=== PATIENT | male | born 1930 | race Caucasian/White ===

== ENCOUNTER → 2019-01-05 | Outpatient (REF) ==
[~2019-01-05] MED LIST: ASPI81TA83 OR; AVOD0.5C OR; CIPR25SS OR; COLA100C2 OR; LIPI80TA OR; LISI2.5T OR; METROPROLOL PO; MULTLIQ7 PO; NITR0.4S SL; PLAV75TA2 OR; RAPAFLO PO
[2019-01-05 09:41] LABS: INR 2.31; PROTHROMBIN TIME 25.9 SECONDS (12.1-14.4)
== END ==
LOC: SKLAB3 06:59
PROVIDERS: ATTEND Internal Medicine
DX: Z47.89 Encounter for other orthopedic aftercare (principal); Z98.890 Other specified postprocedural states; Z79.899 Other long term (current) drug therapy

== ENCOUNTER → 2019-01-06 | Outpatient (REF) ==
[~2019-01-06] MED LIST changes: +AMIO200T PO; +ATOR80TA59 PO; +COLA100C5 PO; +FLOM0.4C39 PO; +LORA10TA3 PO; +MELA5TAB17 PO; +METO1TAB87 PO; +NITR4TASL SL; +PANT40TA3 PO; +PPD5VL ID; +SPIR-10 PO; +SYNT50TA PO; +TYLE325T5 PO; +TYLE500T78 PO; +VITMTA PO; +WARF4TAB52 PO
[2019-01-06 07:37] LABS: INR 2.75; PROTHROMBIN TIME 29.6 SECONDS (12.1-14.4)
== END ==
LOC: SKLAB3 07:00
PROVIDERS: ATTEND Internal Medicine
DX: S72.009A Fracture of unspecified part of neck of unspecified femur, initial encounter for closed fracture (principal); X58.XXXA Exposure to other specified factors, initial encounter; Y92.9 Unspecified place or not applicable; Y93.9 Activity, unspecified; Y99.9 Unspecified external cause status; Z79.01 Long term (current) use of anticoagulants

== ENCOUNTER → 2019-01-09 | Outpatient (REF) ==
[2019-01-09 07:49] LABS: HEMATOCRIT 26.2 % (42.0-52.0); HEMOGLOBIN 8.8 g/dl (13.5-17.5); MEAN CORPUSCULAR HEMOGLOBIN 31.4 pg (27.0-33.0); MEAN CORPUSCULAR HGB CONC 33.6 g/dl (32.0-36.5); MEAN CORPUSCULAR VOLUME 93.6 fl (80.0-96.0); PLATELET COUNT, AUTOMATED 333 10^3/uL (150-450); WHITE BLOOD COUNT 11.8 10^3/uL (4.0-10.0)
[2019-01-09 08:03] LABS: INR 3.51
[2019-01-09 08:20] LABS: BLOOD UREA NITROGEN 34 MG/DL (7-18); CALCIUM LEVEL 8.2 MG/DL (8.8-10.2); CARBON DIOXIDE LEVEL 23 MEQ/L (21-32); CHLORIDE LEVEL 102 MEQ/L (98-107); CREATININE FOR GFR 1.04 MG/DL (0.70-1.30); GLOMERULAR FILTRATION RATE > 60.0 (>35); GLUCOSE, FASTING 100 MG/DL (70-100); NT-PRO BNP 3326 PG/ML (<450); POTASSIUM SERUM 3.8 MEQ/L (3.5-5.1); SODIUM LEVEL 135 MEQ/L (136-145)
--- NOTE | 2019-01-09 14:21 | REP ---
Clinical: Shortness of breath. CHF . Comparison: 03/03/2011 . Findings: The mediastinum and cardiac silhouette are stable and within normal limits for portable technique. The lung noriega are clear without acute consolidation, effusion, or pneumothorax. Skeletal structures are intact. Impression: No acute cardiopulmonary process appreciated. Electronically Signed by Marck Villaseñor MD 01/09/2019 02:13 P
== END ==
LOC: SKLAB3 07:00
PROVIDERS: ATTEND Family Medicine
DX: S72.009A Fracture of unspecified part of neck of unspecified femur, initial encounter for closed fracture (principal); X58.XXXA Exposure to other specified factors, initial encounter; Y92.9 Unspecified place or not applicable; Y93.9 Activity, unspecified; Y99.9 Unspecified external cause status; Z79.01 Long term (current) use of anticoagulants

== ENCOUNTER 2019-01-10 03:56 | Emergency (ER) | payer MEDICARE, OTHER ==
[~2019-01-10] VITALS: Ht 185.4 cm; Wt 90.9 kg
[~2019-01-10 03:56] MED LIST changes: -AMIO200T PO; -ATOR80TA59 PO; -COLA100C5 PO; -FLOM0.4C39 PO; -LORA10TA3 PO; -MELA5TAB17 PO; -METO1TAB87 PO; -NITR4TASL SL; -PANT40TA3 PO; -PPD5VL ID; -SPIR-10 PO; -SYNT50TA PO; -TYLE325T5 PO; -TYLE500T78 PO; -VITMTA PO; -WARF4TAB52 PO
[2019-01-10 04:38] VITALS: BP 98/58
[2019-01-10] MEDS ORDERED: AMIO200T PO (04:45)
[2019-01-10] MEDS ORDERED: TYLE500T78 PO (04:45)
[2019-01-10] MEDS ORDERED: MELA5TAB17 PO (04:45)
[2019-01-10] MEDS ORDERED: COLA100C5 PO (04:45)
[2019-01-10] MEDS ORDERED: LORA10TA3 PO (04:45)
[2019-01-10] MEDS ORDERED: VITMTA PO (04:45)
[2019-01-10] MEDS ORDERED: PANT40TA3 PO (04:45)
[2019-01-10] MEDS ORDERED: SPIR-10 PO (04:45)
[2019-01-10] MEDS ORDERED: TYLE325T5 PO (04:45)
[2019-01-10] MEDS ORDERED: WARF4TAB52 PO (04:45)
[2019-01-10] MEDS ORDERED: METO1TAB87 PO (04:45)
[2019-01-10] MEDS ORDERED: FLOM0.4C39 PO (04:45)
[2019-01-10] MEDS ORDERED: ATOR80TA59 PO (04:45)
[2019-01-10] MEDS ORDERED: PPD5VL ID (04:45)
[2019-01-10] MEDS ORDERED: NITR4TASL SL (04:45)
[2019-01-10] MEDS ORDERED: SYNT50TA PO (04:45)
== END 2019-01-10 05:08 | disposition home or self-care (01) ==
LOC: M ED 03:56
DX: R33.9 Retention of urine, unspecified (principal); I10 Essential (primary) hypertension; I48.91 Unspecified atrial fibrillation; Z95.0 Presence of cardiac pacemaker; Z88.1 Allergy status to other antibiotic agents; Z79.899 Other long term (current) drug therapy; Z79.01 Long term (current) use of anticoagulants

== ENCOUNTER → 2019-01-12 | Outpatient (REF) ==
[~2019-01-12] MED LIST changes: +AMIO200T PO; +ATOR80TA59 PO; +COLA100C5 PO; +FLOM0.4C39 PO; +LORA10TA3 PO; +MELA5TAB17 PO; +METO1TAB87 PO; +NITR4TASL SL; +PANT40TA3 PO; +PPD5VL ID; +SPIR-10 PO; +SYNT50TA PO; +TYLE325T5 PO; +TYLE500T78 PO; +VITMTA PO; +WARF4TAB52 PO
[2019-01-12 08:20] LABS: HEMATOCRIT 28.5 % (42.0-52.0); HEMOGLOBIN 9.3 g/dl (13.5-17.5); MEAN CORPUSCULAR HEMOGLOBIN 31.2 pg (27.0-33.0); MEAN CORPUSCULAR HGB CONC 32.6 g/dl (32.0-36.5); MEAN CORPUSCULAR VOLUME 95.6 fl (80.0-96.0); PLATELET COUNT, AUTOMATED 431 10^3/uL (150-450); RED BLOOD COUNT 2.98 10^6/uL (4.30-6.10); WHITE BLOOD COUNT 12.1 10^3/uL (4.0-10.0)
[2019-01-12 08:34] LABS: INR 3.39; PROTHROMBIN TIME 35.1 SECONDS (12.1-14.4)
== END ==
LOC: SKLAB3 07:19
PROVIDERS: ATTEND Internal Medicine
DX: Z79.01 Long term (current) use of anticoagulants (principal); E03.9 Hypothyroidism, unspecified; D64.9 Anemia, unspecified

== ENCOUNTER → 2019-01-14 | Outpatient (REF) ==
[2019-01-14 08:46] LABS: INR 3.11; PROTHROMBIN TIME 32.7 SECONDS (12.1-14.4)
== END ==
LOC: SKLAB3 07:00
PROVIDERS: ATTEND Internal Medicine
DX: Z79.01 Long term (current) use of anticoagulants (principal)

== ENCOUNTER → 2019-01-16 | Outpatient (REF) ==
[2019-01-16 09:02] LABS: HEMATOCRIT 29.6 % (42.0-52.0); HEMOGLOBIN 9.4 g/dl (13.5-17.5); MEAN CORPUSCULAR HEMOGLOBIN 31.3 pg (27.0-33.0); MEAN CORPUSCULAR HGB CONC 31.8 g/dl (32.0-36.5); MEAN CORPUSCULAR VOLUME 98.7 fl (80.0-96.0); PLATELET COUNT, AUTOMATED 491 10^3/uL (150-450)
[2019-01-16 09:29] LABS: BLOOD UREA NITROGEN 27 MG/DL (7-18); CARBON DIOXIDE LEVEL 24 MEQ/L (21-32); CHLORIDE LEVEL 106 MEQ/L (98-107); CREATININE FOR GFR 0.93 MG/DL (0.70-1.30); GLOMERULAR FILTRATION RATE > 60.0 (>35); GLUCOSE, FASTING 83 MG/DL (70-100); POTASSIUM SERUM 4.1 MEQ/L (3.5-5.1); SODIUM LEVEL 139 MEQ/L (136-145)
== END ==
LOC: SKLAB3 07:00
PROVIDERS: ATTEND Internal Medicine
DX: D64.9 Anemia, unspecified (principal); I50.9 Heart failure, unspecified

== ENCOUNTER → 2019-01-19 | Outpatient (REF) ==
[2019-01-19 10:39] LABS: INR 1.93; PROTHROMBIN TIME 22.4 SECONDS (12.1-14.4)
== END ==
LOC: SKLAB3 07:00
PROVIDERS: ATTEND Internal Medicine
DX: I48.91 Unspecified atrial fibrillation (principal)

== ENCOUNTER → 2019-01-24 | Outpatient (REF) ==
[2019-01-24 07:59] LABS: HEMATOCRIT 29.3 % (42.0-52.0); HEMOGLOBIN 9.2 g/dl (13.5-17.5); MEAN CORPUSCULAR HEMOGLOBIN 30.4 pg (27.0-33.0); MEAN CORPUSCULAR HGB CONC 31.4 g/dl (32.0-36.5); MEAN CORPUSCULAR VOLUME 96.7 fl (80.0-96.0); PLATELET COUNT, AUTOMATED 310 10^3/uL (150-450); RED BLOOD COUNT 3.03 10^6/uL (4.30-6.10); WHITE BLOOD COUNT 8.4 10^3/uL (4.0-10.0)
[2019-01-24 08:09] LABS: INR 1.93; PROTHROMBIN TIME 22.4 SECONDS (12.1-14.4)
[2019-01-24 08:24] LABS: BLOOD UREA NITROGEN 22 MG/DL (7-18); CALCIUM LEVEL 7.6 MG/DL (8.8-10.2); CARBON DIOXIDE LEVEL 26 MEQ/L (21-32); CHLORIDE LEVEL 105 MEQ/L (98-107); CREATININE FOR GFR 1.05 MG/DL (0.70-1.30); GLOMERULAR FILTRATION RATE > 60.0 (>35); GLUCOSE, FASTING 88 MG/DL (70-100); POTASSIUM SERUM 4.2 MEQ/L (3.5-5.1); SODIUM LEVEL 139 MEQ/L (136-145)
== END ==
LOC: SKLAB3 07:00
PROVIDERS: ATTEND Internal Medicine
DX: I48.91 Unspecified atrial fibrillation (principal); D64.9 Anemia, unspecified; I50.9 Heart failure, unspecified

== ENCOUNTER → 2019-01-26 | Outpatient (REF) ==
[2019-01-26 08:43] LABS: HEMATOCRIT 31.9 % (42.0-52.0); MEAN CORPUSCULAR HEMOGLOBIN 30.7 pg (27.0-33.0); MEAN CORPUSCULAR HGB CONC 31.3 g/dl (32.0-36.5); MEAN CORPUSCULAR VOLUME 97.9 fl (80.0-96.0); PLATELET COUNT, AUTOMATED 313 10^3/uL (150-450); RED BLOOD COUNT 3.26 10^6/uL (4.30-6.10); WHITE BLOOD COUNT 7.8 10^3/uL (4.0-10.0)
[2019-01-26 08:59] LABS: INR 1.81; PROTHROMBIN TIME 21.3 SECONDS (12.1-14.4)
[2019-01-26 10:52] LABS: BLOOD UREA NITROGEN 25 MG/DL (7-18); CARBON DIOXIDE LEVEL 25 MEQ/L (21-32); CHLORIDE LEVEL 105 MEQ/L (98-107); CHOLESTEROL LEVEL 92 MG/DL (<200); CHOLESTEROL RISK RATIO 3.066 (<5); CREATININE FOR GFR 1.14 MG/DL (0.70-1.30); GLOMERULAR FILTRATION RATE > 60.0 (>35); GLUCOSE, FASTING 99 MG/DL (70-100); HDL CHOLESTEROL 30 MG/DL (>40); LDL CHOLESTEROL 46 MG/DL (<100); NON-HDL-C 62 MG/DL; POTASSIUM SERUM 4.2 MEQ/L (3.5-5.1); SODIUM LEVEL 141 MEQ/L (136-145); TRIGLYCERIDES LEVEL 80 MG/DL (<150)
== END ==
LOC: SKLAB3 07:00
PROVIDERS: ATTEND Internal Medicine
DX: I48.91 Unspecified atrial fibrillation (principal); D64.9 Anemia, unspecified; E78.5 Hyperlipidemia, unspecified; I50.9 Heart failure, unspecified

== ENCOUNTER → 2019-02-03 | Outpatient (REF) ==
[2019-02-03 14:26] LABS: INR 2.29; PROTHROMBIN TIME 25.7 SECONDS (12.1-14.4)
== END ==
LOC: SKLAB3 10:26
PROVIDERS: ATTEND Internal Medicine
DX: I48.91 Unspecified atrial fibrillation (principal)

== ENCOUNTER → 2019-02-13 | Outpatient (REF) ==
--- NOTE | 2019-02-13 16:24 | ECGEPIP ---
Stationary ECG Study [facility] Test Date: 2019-02-13 Pat Name: ELIJAH WHIPPLE Department: Room: - Gender: M [employer] Faculty Member: SCOTT : [id number] Requested By: Layo Monteiro Order Number: [id number] Reading MD: Tia Cruz Measurements Intervals [place] Rate: 72 P: IN: 0 QRS: -12 QRSD: 157 T: 124 QT: 473 QTc: 520 Interpretive Statements ATRIAL FLUTTER/TACHYCARDIA INTRAVENTRICULAR CONDUCTION DELAY ILBBB SEPTAL CO AGE UNDETERMINDED NO PRIOR ISOLATED ST ELEV IN V2 NO RECIPROCOL CHANGE DR MONTEIRO OFFICE WILL BE CALLED ALERTING TO INCOMING FAX Electronically Signed On 02-13-2019 16:23:44 EDT by Tia Cruz
== END ==
LOC: SKLAB3 06:53
PROVIDERS: ATTEND Internal Medicine
DX: I49.9 Cardiac arrhythmia, unspecified (principal)

== ENCOUNTER → 2019-03-02 | Outpatient (CLI) | payer MEDICARE, OTHER ==
[~2019-03-02] MED LIST changes: +ACET-683 PO; +DOXY-350 PO; +DOXY100C37 PO; +ENOX80IN3 SQ; +MIRA3350 PO
--- NOTE | 2019-03-02 10:59 | REP ---
Bilateral lower extremity arterial Doppler ultrasound: History: Stage III pressure ulcer left heel. Evaluate for bilateral arterial insufficiency. Findings: The ankle brachial indices are normal bilaterally, measured at 1.8 on the right and 1.4 on the left. There is mild plaquing visualized in the arterial system of each leg. No high-grade stenosis is identified. Monophasic waveforms are observed in the distal posterior tibial arteries bilaterally which may imply some calf disease. Right lower extremity arterial Doppler velocity chart: CF A 74 cm/S Profunda 79 Proximal SFA 84 Mid SFA 81 Distal SFA 73 Popliteal 66 Proximal AT A 43 Tibioperoneal trunk 71 Proximal [employer] ADVISOR 96 Distal [employer] BEAUTY ADVISOR 114 Distal AT A 67 Left lower extremity arterial Doppler velocity chart: CF A 99 cm/S Profunda 71 Proximal SFA 101 Mid SFA 102 Distal SFA 92 Popliteal 61 Proximal AT A 35 Tibioperoneal trunk 59 Proximal [employer] BEAUTY ADVISOR 91 Distal [employer] SALES BEAUTY ADVISOR 111 Distal AT A 62 Electronically Signed by Jordan Franklin MD 03/02/2019 10:50 A
== END ==
LOC: M RAD 09:06
PROVIDERS: ATTEND Surgery
DX: L89.623 Pressure ulcer of left heel, stage 3 (principal); R09.89 Other specified symptoms and signs involving the circulatory and respiratory systems

== ENCOUNTER → 2019-03-09 | Outpatient (CLI) | payer MEDICARE, OTHER ==
[~2019-03-09] VITALS: Ht 180.3 cm; Wt 85.9 kg
[~2019-03-09] MED LIST changes: -ACET-683 PO; -DOXY-350 PO; -DOXY100C37 PO; -ENOX80IN3 SQ; +ETOMIDATE INJ 20MG/10ML VIAL As Ordered ONE; +LIDOCAINE 2% 5ML JELLY UROJET As Ordered ONE; +LIDOCAINE 2% INJ 100 MG/5 ML SDV (FOR ANES.) As Ordered ONE; +LR 1,000 ML IV ONE; +LevoFLOXacin IV 500 MG in APPROPRIATE DILUENT 1 EA IV ONE; +MIDAZOLAM INJ 2 MG/2 ML VIAL (J2250) As Ordered ONE; -MIRA3350 PO; +ONDANSETRON 4MG/2ML VIAL (J2405) As Ordered ONE; +PROPOFOL 200 MG/20 ML VIAL As Ordered ONE; +ROCURONIUM BROMIDE 50 MG/5 ML VIAL As Ordered ONE; +dexameTHASONE 4 MG/ML 1ML VIAL (J1100) As Ordered ONE; +fentaNYL 100 MCG/2 ML INJECTION (J3010) As Ordered ONE
[2019-03-09 11:51] VITALS: BP 115/75
[2019-03-09 15:26] LABS: INR 2.04; PROTHROMBIN TIME 23.4 SECONDS (12.1-14.4)
== END ==
LOC: M SDC 09:41 → EDSTATUS 13:00
PROVIDERS: ATTEND Urology
DX: N32.0 Bladder-neck obstruction (principal); Z53.09 Procedure and treatment not carried out because of other contraindication; Z79.01 Long term (current) use of anticoagulants
CPT/HCPCS: 85610; J1956; J2250; J3010

== ENCOUNTER 2019-03-17 10:32 | Day surgery (SDC) | payer MEDICARE, OTHER ==
[~2019-03-17] VITALS: Ht 180.3 cm; Wt 89.8 kg
[~2019-03-17 10:32] MED LIST changes: -ETOMIDATE INJ 20MG/10ML VIAL As Ordered ONE; -LIDOCAINE 2% 5ML JELLY UROJET As Ordered ONE; -LR 1,000 ML IV ONE; +LR 1,000 ML IV SCH; -MIDAZOLAM INJ 2 MG/2 ML VIAL (J2250) As Ordered ONE; -ROCURONIUM BROMIDE 50 MG/5 ML VIAL As Ordered ONE; -fentaNYL 100 MCG/2 ML INJECTION (J3010) As Ordered ONE
[2019-03-17 11:12] LABS: BASO % 0.4 % (0.0-1.0); EOS # 0.1 10^3/uL (0.0-0.50); EOS % 0.5 % (0.0-3.0); HEMATOCRIT 38.4 % (42.0-52.0); HEMOGLOBIN 12.2 g/dl (13.5-17.5); LYMPH # 0.9 10^3/uL (1.5-4.5); LYMPH % 8.3 % (24.0-44.0); MEAN CORPUSCULAR HGB CONC 31.8 g/dl (32.0-36.5); MEAN CORPUSCULAR VOLUME 88.1 fl (80.0-96.0); MONO # 0.9 10^3/uL (0.0-0.8); MONO % 8.2 % (0.0-5.0); NEUTROPHILS # 8.8 10^3/uL (1.8-7.7); NEUTROPHILS % 81.9 % (36.0-66.0); PLATELET COUNT, AUTOMATED 261 10^3/uL (150-450); RED BLOOD COUNT 4.36 10^6/uL (4.30-6.10); WHITE BLOOD COUNT 10.8 10^3/uL (4.0-10.0)
[2019-03-17 11:33] LABS: CALCIUM LEVEL 8.8 MG/DL (8.8-10.2); CREATININE FOR GFR 1.44 MG/DL (0.70-1.30); GLOMERULAR FILTRATION RATE 49.5 (>35); POTASSIUM SERUM 4.2 MEQ/L (3.5-5.1)
[2019-03-17] MEDS ORDERED: fentaNYL 100 MCG/2 ML INJECTION (J3010) As Ordered ONE (13:38)
[2019-03-17] MEDS ORDERED: MIDAZOLAM INJ 2 MG/2 ML VIAL (J2250) As Ordered ONE (13:38)
[2019-03-17] MEDS ORDERED: KETAMINE HCL 200 MG/20 ML VIAL As Ordered ONE (14:03)
[2019-03-17] MEDS ORDERED: LIDOCAINE 2% 5ML JELLY UROJET As Ordered ONE (14:09)
[2019-03-17] MEDS ORDERED: ONDANSETRON 4MG/2ML VIAL (J2405) IV PRN (15:30)
[2019-03-17] MEDS ORDERED: fentaNYL 100 MCG/2 ML INJECTION (J3010) IV PRN (15:30)
[2019-03-17] MEDS ORDERED: LR 1,000 ML IV SCH (15:30)
[2019-03-17] MEDS ORDERED: NORCO, ANEXSIA 5/325MG TABLET (HYDROcodone/ACETAMINOPHEN) PO PRN (15:30)
[2019-03-17] MEDS ORDERED: ACETAMINOPHEN TAB 650MG DOSE (2X325MG) PO PRN (15:45)
[2019-03-17 16:40] VITALS: BP 104/59
--- NOTE | 2019-03-17 22:00 | RO ---
DATE OF PROCEDURE: 03/17/2019 PREOPERATIVE DIAGNOSIS: Bladder neck contracture. POSTOPERATIVE DIAGNOSIS: Bladder neck contracture. OPERATIVE PROCEDURE: Cystoscopy, transurethral incision of bladder neck. SURGEON: Juan Rosales MD CHIEF CONTROLLER STATION: None. ANESTHESIA: Monitored anesthesia care (MAC). 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 He was brought to the operating room today for the above listed procedure. DESCRIPTION OF OPERATION: The patient was brought to the operating room and MAC anesthesia was administered. Prophylactic antibiotics were infused. He was then placed in the dorsal lithotomy position and prepped and draped in the usual sterile fashion. At this point, a resectoscope was inserted through the urethral meatus and advanced towards the bladder. Once at the level of the bladder neck of note he had a narrow bladder neck contracture. At this point, we utilized a Andrea's knife to make incisions at 5-o'clock, 7-o'clock and 12-o'clock. I did this until the bladder neck was wide open. Any areas of bleeding were cauterized with electrocautery. Once satisfied with hemostasis, the resectoscope was removed and an #18-[place]ov[place] Butts catheter was inserted into the bladder. The balloon was filled with 10 mL of sterile water and then connected to gravity drainage. This marked the conclusion of the procedure. The patient was then taken out of the dorsal lithotomy position, awakened from anesthesia and transported to the recovery room in stable condition. ESTIMATED BLOOD LOSS: 5 mL. COMPLICATIONS: None. SPECIMENS: None. PLAN: The patient will followup in the clinic in approximately 1 to 2 weeks for catheter removal and voiding trial. LUCÍA
== END 2019-03-17 17:01 | disposition home or self-care (01) ==
LOC: M SDC 10:32
PROVIDERS: ATTEND Urology
DX: N32.0 Bladder-neck obstruction (principal); I48.91 Unspecified atrial fibrillation; I25.10 Atherosclerotic heart disease of native coronary artery without angina pectoris; I10 Essential (primary) hypertension; E78.5 Hyperlipidemia, unspecified; E03.9 Hypothyroidism, unspecified; K21.9 Gastro-esophageal reflux disease without esophagitis; Z79.01 Long term (current) use of anticoagulants; N40.0 Benign prostatic hyperplasia without lower urinary tract symptoms; Z95.0 Presence of cardiac pacemaker; Z95.810 Presence of automatic (implantable) cardiac defibrillator; Z86.73 Personal history of transient ischemic attack (TIA), and cerebral infarction without residual deficits; Z88.1 Allergy status to other antibiotic agents
CPT/HCPCS: 36415; 52277; 80048; 85025; J1100; J1956; J2250; J2405; J3010

== ENCOUNTER 2019-03-20 13:40 | Emergency (ER) | payer MEDICARE, OTHER ==
[~2019-03-20] VITALS: Ht 180.3 cm; Wt 85.9 kg
[~2019-03-20 13:40] MED LIST changes: -LIDOCAINE 2% INJ 100 MG/5 ML SDV (FOR ANES.) As Ordered ONE; -LR 1,000 ML IV SCH; -LevoFLOXacin IV 500 MG in APPROPRIATE DILUENT 1 EA IV ONE; -ONDANSETRON 4MG/2ML VIAL (J2405) As Ordered ONE; -PROPOFOL 200 MG/20 ML VIAL As Ordered ONE; -dexameTHASONE 4 MG/ML 1ML VIAL (J1100) As Ordered ONE
[2019-03-20 16:19] VITALS: BP 103/65
[2019-03-21] MEDS ORDERED: SANTYL OINT 30GM TOP ONE (09:00)
== END 2019-03-20 17:35 | disposition home or self-care (01) ==
LOC: M ED 13:40
DX: L89.619 Pressure ulcer of right heel, unspecified stage (principal); L89.629 Pressure ulcer of left heel, unspecified stage; I11.9 Hypertensive heart disease without heart failure; I25.10 Atherosclerotic heart disease of native coronary artery without angina pectoris; I25.2 Old myocardial infarction; N40.0 Benign prostatic hyperplasia without lower urinary tract symptoms; Z95.0 Presence of cardiac pacemaker; Z95.5 Presence of coronary angioplasty implant and graft; Z88.1 Allergy status to other antibiotic agents; Z79.899 Other long term (current) drug therapy

== ENCOUNTER 2019-03-26 15:11 | Emergency (ER) | payer MEDICARE, OTHER ==
[~2019-03-26] VITALS: Ht 182.9 cm; Wt 85.9 kg
[2019-03-26] MEDS ORDERED: NS 500 ML IV ONE (16:00)
[2019-03-26 16:28] LABS: BASO % 0.4 % (0.0-1.0); EOS # 0.1 10^3/uL (0.0-0.50); EOS % 0.5 % (0.0-3.0); HEMATOCRIT 41.6 % (42.0-52.0); LYMPH # 1.5 10^3/uL (1.5-4.5); LYMPH % 13.6 % (24.0-44.0); MEAN CORPUSCULAR HEMOGLOBIN 28.1 pg (27.0-33.0); MEAN CORPUSCULAR HGB CONC 31.3 g/dl (32.0-36.5); MEAN CORPUSCULAR VOLUME 89.8 fl (80.0-96.0); MONO # 0.9 10^3/uL (0.0-0.8); NEUTROPHILS # 8.4 10^3/uL (1.8-7.7); NEUTROPHILS % 76.9 % (36.0-66.0); PLATELET COUNT, AUTOMATED 284 10^3/uL (150-450); RED BLOOD COUNT 4.63 10^6/uL (4.30-6.10)
[2019-03-26 16:57] LABS: ALBUMIN 2.9 GM/DL (3.2-5.2); BILIRUBIN,DIRECT 0.2 MG/DL (0.0-0.2); BILIRUBIN,TOTAL 0.4 MG/DL (0.2-1.0); C REACTIVE PROTEIN QUANTITATIV 3.76 MG/DL (0.00-0.30); CALCIUM LEVEL 8.7 MG/DL (8.8-10.2); CREATININE FOR GFR 1.61 MG/DL (0.70-1.30); GLOMERULAR FILTRATION RATE 43.5 (>35); POTASSIUM SERUM 4.7 MEQ/L (3.5-5.1); TOTAL PROTEIN 6.9 GM/DL (6.4-8.2)
--- NOTE | 2019-03-26 17:01 | REP ---
Duplex extremity venous ultrasound: Left lower extremity. History: Left leg redness and pain. Swelling. Question DVT. Findings: The deep veins are anechoic and fully compressible from the groin to the popliteal fossa in the left lower extremity. Color flow imaging is homogeneous. Spectral Doppler interrogation demonstrates intact respiratory variation in flow and normal manual augmentation of flow. There is no evidence of deep vein thrombosis. Impression: Negative left lower extremity duplex venous ultrasound. No evidence of deep vein thrombosis. Electronically Signed by Jordan Franklin MD 03/26/2019 04:53 P
[2019-03-26 17:45] VITALS: BP 107/53
[2019-03-26] MEDS ORDERED: DOXYCYCLINE HYCLATE 100 MG TAB PO ONE (18:00)
[2019-03-26] MEDS ORDERED: DOXY-350 PO (18:02)
[2019-03-26] MEDS ORDERED: ENOX80IN3 SQ (18:17)
[2019-03-26] MEDS ORDERED: DOXY100C37 PO (18:18)
== END 2019-03-26 18:32 | disposition home or self-care (01) ==
LOC: M ED 15:11
DX: L03.116 Cellulitis of left lower limb (principal); L97.929 Non-pressure chronic ulcer of unspecified part of left lower leg with unspecified severity; Z72.0 Tobacco use; Z95.5 Presence of coronary angioplasty implant and graft; Z95.0 Presence of cardiac pacemaker; N40.1 Benign prostatic hyperplasia with lower urinary tract symptoms; E03.9 Hypothyroidism, unspecified; Z79.899 Other long term (current) drug therapy; Z88.8 Allergy status to other drugs, medicaments and biological substances; Z91.040 Latex allergy status

== ENCOUNTER → 2019-03-27 | Outpatient (CLI) | payer MEDICARE, OTHER ==
[~2019-03-27] MED LIST changes: +DOXY-350 PO; +DOXY100C37 PO; +ENOX80IN3 SQ; +HEPARIN 1,000 UNITS/ML 10ML VIAL (FOR RADIOLOGY& DIALYSIS ONLY) As Ordered ONE; +ISOVUE-300 61% 100ML VIAL (Q9967) As Ordered ONE; +LIDOCAINE 2% MDV 20 ML VIAL As Ordered ONE; +MIDAZOLAM INJ 2 MG/2 ML VIAL (J2250) As Ordered ONE; +diphenhydrAMINE INJ 50MG/ML VIAL (J1200) As Ordered ONE; +fentaNYL 100 MCG/2 ML INJECTION (J3010) As Ordered ONE
[2019-03-27 12:04] LABS: INR 1.04; PROTHROMBIN TIME 13.8 SECONDS (12.1-14.4)
--- NOTE | 2019-03-27 15:34 | ROOPDOC ---
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 Ultrasound-guided access right common femoral artery 2. Left lower extremity arteriogram with selection of the posterior tibial artery 3. Angioplasty of the left tibial peroneal trunk and posterior tibial artery with a 3 x 220 Raghu balloon 4. Completion arteriograms 5. Minx closure right common femoral artery SURGEON: Naheed Ordoñez MD ANESTHESIA: Local anesthesia, 8 mL of lidocaine. Moderate intravenous conscious sedation was supervised by Dr. Ordoñez and the patient tolerated this without complication. The patient was independently monitored by a registered nurse assigned to the Department of radiology using automated blood pressure, EKG, and pulse oximetry. The detail Ramírez record is permanently stored in the hospital information system. The following is a conscious sedation record: Start time 13:27, end time 14:30, Versed 1 mg IV, fentanyl 75 g IV, heparin 5000 units IV. IV contrast: 24 mL Isovue INDICATION FOR PROCEDURE: Mr. Kwok is a very pleasant 88-year-old gentleman with significant tibial atherosclerotic disease, with suspected occlusion of his left posterior tibial artery after examining recent ultrasound imaging. He has significant wounds of the left foot, heel, ankle, and calf. These have been nonhealing and somewhat worsening over the past few weeks. We discussed with the patient due to his advanced age, stage III progressive chronic renal insufficiency, congestive heart failure, and other medical comorbidities that he is high risk for any procedure. The patient's family was present for this discussion. Both the patient and his family feel at this point limb salvage is of the utmost importance and they understand that there are risks. In order to minimize these risks, we will provide gentle hydration to try to protect the kidneys and at the same time not overload the heart. We will use as little IV contrast as possible, with the goal of less than 50mL. The patient also has atherosclerosis and wounds on the right lower extremity, but per his family and the patient these are getting better. If possible, we like to hold off at least a few weeks before working on the right leg if his wounds do not heal in the interim. However, if his wound heal, I do not feel intervention is warranted as at that point the risks would outweigh the benefits. After a lengthy discussion, informed consent was obtained. INTERPRETATION: 1. The left lower extremity femoral-popliteal flow is widely patent. 2. There is mild atherosclerotic disease noted in the distal popliteal artery that is not flow restrictive, a little bit of plaque noted in the tibioperoneal trunk, and complete occlusion 5 mm from the origin of the posterior tibial artery. The peroneal artery and anterior tibial artery has some atherosclerosis but it does not appear flow limiting. The posterior tibial artery does not reconstitute distally. 3. After angioplasty of the left lower extremity tibioperoneal trunk and posterior tibial artery, extending all the way down to the plantar arteries, the patient had a widely patent flow through all tibial vessels to the foot. There was a biphasic posterior tibial signal at the ankle with Doppler. No extravasation, dissection, spasm, or embolization were noted after angioplasty. PROCEDURE: The patient was brought to the angiographic suite in stable condition and placed supine on the fluoroscopic table. His bilateral groins were prepped and draped in a sterile fashion. A timeout was performed. Sedation was administered without complication. Local anesthesia was administered to the skin and subcutaneous tissue over the right groin. Microneedle was used to access the right common femoral artery under ultrasound guidance. A wire was passed through this access and a micro-sheath was placed using a Seldinger technique. 1000 units of heparin was given and allowed to circulate. Through this sheath, we placed a long stiff Glidewire into the distal aorta under fluoroscopic guidance. We then advanced an angle catheter and went up and over the bifurcation into the left femoral system. Under fluoroscopic guidance, we navigated into the superficial femoral artery and arteriogram showed this to be widely patent. We then navigated down to the popliteal artery which was also widely patent with minimal plaque noted. We then placed her catheter in the popliteal artery and a selective view of the lower extremities revealed patent peroneal and anterior tibial arteries with runoff to the foot, but an occluded posterior tibial artery approximately 5 mm from its or we then utilized her Glidewire to access the posterior tibial artery and were able with some manipulation to cross through the chronic total occlusion. This took a bit of time, but once are catheter was in the distal posterior tibial artery, a select view here confirmed we were in the true lumen. We then advanced a V018 wire through the catheter into the distal posterior tibial artery and then into the plantar artery. Over the wire, we angioplasties the entire length of the tibioperoneal trunk, posterior tibial artery, and proximal plantar arteries with a 3 x 220 Raghu balloon. Several inflations were done with an initial inflation of 10 derik and then decreasing to 2 derik over the next 3 minutes. Multiple three-minute inflations were done to try to provide longer term angioplasty results and prevent spasm. Completion arteriogram showed widely patent flow through the tibioperoneal trunk, all 3 tibial vessels proximally and distally, and flow through the posterior tibial continued into the plantar vessels into the foot. This concluded our procedure. We exchanged our wire back for the 035 stiff Glidewire and exchanged her sheath over this wire for the short 6 [place]ian sheath. We then deployed a minx closure device in the right common femoral artery access site with good hemostasis. Pr essure was held for 5 minutes postprocedure and sterile dressings were applied. The patient was taken to recovery in stable condition and monitored for 4 hours on flat bed rest. There were no complications and he tolerated the procedure well. Very little contrast was used. We provided gentle hydration before during and after the procedure to minimize renal toxicity in this patient with tenuous renal function. ESTIMATED BLOOD LOSS: Approximately 5 mL. COMPLICATIONS: None. PLAN: We will see the patient back in clinic next week. We will check his groin access site in his foot perfusion at that time. We will schedule him for his ri ght lower extremity in 2-3 weeks, to get his kidneys a break between contrast ministrations. If his right foot heals in the interim, we will cancel the procedure (because at that point the risks would outweigh the benefits.) Hopefully the perfusion we provided today will help with wound healing in the left lower extremity. I suspect part of the lack of healing is due to ongoing pressure over the areas of wounds, but it certainly can hurt to have improved blood flow. The patient should resume his Lovenox twice a day and if it is okay with his primary care should also resume his Coumadin. NAHEED ORDOÑEZ MD March 27, 2019 15:20
== END | disposition home or self-care (01) ==
LOC: M IRPRO 10:16
PROVIDERS: ATTEND Surgery Vascular Surgery
DX: I70.245 Atherosclerosis of native arteries of left leg with ulceration of other part of foot (principal); I70.242 Atherosclerosis of native arteries of left leg with ulceration of calf; I70.244 Atherosclerosis of native arteries of left leg with ulceration of heel and midfoot; L97.529 Non-pressure chronic ulcer of other part of left foot with unspecified severity; L97.229 Non-pressure chronic ulcer of left calf with unspecified severity; L97.429 Non-pressure chronic ulcer of left heel and midfoot with unspecified severity
CPT/HCPCS: 37228; 85610; 99152; 99153; C1725; C1760; C1769; C1887; C1894; J2250; J3010; Q9967

== ENCOUNTER → 2019-04-21 | Outpatient (CLI) | payer MEDICARE, OTHER ==
[~2019-04-21] MED LIST changes: +BUPIVACAINE HCL 0.5% 10 ML VIAL As Ordered ONE; -ISOVUE-300 61% 100ML VIAL (Q9967) As Ordered ONE; +ISOVUE-300 61% 50ML VIAL (Q9967) As Ordered ONE
[2019-04-21 10:14] LABS: HEMATOCRIT 41.9 % (42.0-52.0); HEMOGLOBIN 13.2 g/dl (13.5-17.5); MEAN CORPUSCULAR HEMOGLOBIN 28.3 pg (27.0-33.0); MEAN CORPUSCULAR HGB CONC 31.5 g/dl (32.0-36.5); MEAN CORPUSCULAR VOLUME 89.7 fl (80.0-96.0); PLATELET COUNT, AUTOMATED 209 10^3/uL (150-450); RED BLOOD COUNT 4.67 10^6/uL (4.30-6.10); WHITE BLOOD COUNT 7.9 10^3/uL (4.0-10.0)
[2019-04-21 10:32] LABS: BLOOD UREA NITROGEN 19 MG/DL (7-18); CALCIUM LEVEL 9.1 MG/DL (8.8-10.2); CARBON DIOXIDE LEVEL 26 MEQ/L (21-32); CHLORIDE LEVEL 105 MEQ/L (98-107); CREATININE FOR GFR 1.06 MG/DL (0.70-1.30); GLOMERULAR FILTRATION RATE > 60.0 (>35); GLUCOSE, FASTING 89 MG/DL (70-100); SODIUM LEVEL 139 MEQ/L (136-145)
--- NOTE | 2019-04-21 15:48 | ROOPDOC ---
[facility] Report Of Operation Report of Operation DATE OF PROCEDURE: 04/21/19 PREPROCEDURE DIAGNOSES: Atherosclerosis of the [place] arteries of the right lower extremity with nonhealing ulcer of the right heel and foot. POSTPROCEDURE DIAGNOSES: Same. PROCEDURE: 1. Ultrasound-guided access left common femoral artery 2. Right lower extremity arteriogram 3. Tibial arteriograms from popliteal artery selection 4. Angioplasty of the right anterior tibial artery with a 3 x 220 Raghu balloon 5. Angioplasty of the right posterior tibial artery with a 3 x 220 Raghu balloon 6. Completion arteriograms 7. Minx closure left common femoral artery SURGEON: Naheed Ordoñez MD ANESTHESIA: Local anesthesia, and 5 mL 1% lidocaine. Moderate intravenous conscious sedation was supervised by Dr. Ordoñez. The patient was independently monitored by a registered nurse assigned to the Department of radiology using automated blood pressure, EKG and pulse oximetry. The detailed conscious record is permanently stored in the hospital information system. The following is a conscious sedation record: Start time 11:31, end time 12:40, Versed 0.5 mg IV, fentanyl 25 g IV, heparin 3000 units IV. IV CONTRAST: 33 mL total INDICATION FOR PROCEDURE: Mr. Kwok is a very pleasant 88-year-old gentleman with stage III renal insufficiency and CHF who has been struggling to manage ruma ateral feet and heel wounds. He has mild tibial disease in the bilateral lower extremities, and we were able to open up and angioplasty is posterior tibial artery in the left lower extremity a few weeks ago. He had as much melita procedural hydration as we felt he could tolerate with his heart failure, and we waited a few weeks in between procedures to minimize risk of contrast nephr opathy and also see if the wounds on his right lower extremity would heal without intervention. His creatinine is down to 1.06 which is excellent, but he still has significant way to go for healing on the right foot. Therefore we again discussed risks benefits and alternatives to arteriogram with potential intervention to see if we can open up more flow to the foot assist with wound healing. We will again try to use is minimal IV contrast as possible, with melita- procedure hydration. Informed consent was obtained. FINDINGS: 1. The right iliofemoral system and popliteal artery are widely patent. There is plaque throughout the tibial system, with the worst areas of stenosis and near occlusion in the proximal third of the anterior tibial artery. There are several areas of mild stenosis from this plaque in the posterior tibial artery in the proximal third, but distal to this it appears widely patent and is the best in- line runoff to the foot. 2. Following angioplasty of the anterior tibial and posterior tibial arteries, there is less than 10% residual stenosis in either vessel in the areas of angioplasty with 3 vessel runoff to the foot. No embolization, dissection, or extravasation is noted. PROCEDURE NOTE: The patient was brought to the angiographic suite in stable condition and placed supine on the fluoroscopic table. His bilateral groins were prepped and draped in a sterile fashion. Sedation was administered without complication. A timeout was performed. Local anesthesia was ministered to the skin and subcutaneous tissue in the left groin over the common femoral vessel. A microneedle was used to access the common femoral artery under ultrasound guidance. A wire was passed through this access of micro-sheath was placed over the wire using the Seldinger technique. A Glidewire was passed under fluoroscopy through this access into the distal aorta and the sheath was then exchanged for 6 Spanish sheath over the wire using a Seldinger technique. The sheath was then flushed with saline. An Omni flushed catheter was used to go up and over the bifurcation with a Glidewire and access the distal iliac system. Right lower extremity arteriogram was performed and we found widely patent iliofemoral flow, popliteal flow, and mild plaque and stenoses throughout the anterior tibial and posterior tibial system. We then navigated the wire into the distal superficial femoral artery and exchange the sheath for a 90 cm 6 Spanish sheath and flushed the sheath with saline. A [place] cath was placed over the wire and we were able to navigator wire into the anterior tibial artery, followed by the catheter. We then exchanged R wire for a V18 wire, which we navigated to the distal anterior tibial artery into the dorsal pedis artery. And over this wire we placed a 3 x 220 Raghu balloon. A three-minute angioplasty at low atmospheres was performed both distally and proximally within the vessel. Following this, there was widely patent inflow through the anterior tibial artery in the areas of near occlusion had less than 10% residual stenosis. We then utilized a glide cath to navigate the wire into the posterior tibial artery distally. We then angioplasty the proximal third of the posterior tibial artery with a 3 x 220 Raghu balloon, also at low atmospheres for three-minute inflation. Following this, completion arteriogram showed widely patent inflow through the posterior tibial artery with no flow- limiting plaque stenosis present. There was good flow all the way to the distal foot on completion arteriograms with no evidence of embolization dissection or extravasation. This concluded our procedure. We exchanged the 90 cm 6 Spanish sheath for short 6 Spanish sheath and a minx closure device was deployed under fluoroscopic guidance with good hemostasis. Pressure was held for 10 minutes. The patient tolerated this well and was transferred back to [facility] [address] in stable condition. He was monitored for 4 hours postprocedure for bleeding and then discharged home in stable condition. ESTIMATED BLOOD LOSS: Approximately 5 mL. COMPLICATIONS: None. PLAN: Our plan is for the patient to continue with his excellent wound care with Dr. Barajas. He should continue offloading his feet and heels to prevent new pressure necrosis on his wounds. He should eat plenty of protein to help with wound healing. Patient continued to take his Coumadin as prescribed by his primary care doctor. We will see the patient back in a week to check his left groin access site and make sure he is doing okay. NAHEED ORDOÑEZ MD Apr 21, 2019 15:48
== END | disposition home or self-care (01) ==
LOC: M IRPRO 09:08
PROVIDERS: ATTEND Surgery Vascular Surgery
DX: I70.234 Atherosclerosis of native arteries of right leg with ulceration of heel and midfoot (principal); I70.235 Atherosclerosis of native arteries of right leg with ulceration of other part of foot; L97.419 Non-pressure chronic ulcer of right heel and midfoot with unspecified severity; I50.9 Heart failure, unspecified; N18.3 Chronic kidney disease, stage 3 (moderate)
CPT/HCPCS: 37228; 37232; 75710; 80048; 85027; 99152; 99153; C1725; C1760; C1769; C1887; C1894; J2250; J3010; Q9967

== ENCOUNTER 2019-05-11 17:03 | Inpatient (IN) | payer MEDICARE, OTHER ==
[~2019-05-11] VITALS: Ht 182.9 cm; Wt 86.7 kg
[~2019-05-11 17:03] MED LIST changes: -BUPIVACAINE HCL 0.5% 10 ML VIAL As Ordered ONE; -HEPARIN 1,000 UNITS/ML 10ML VIAL (FOR RADIOLOGY& DIALYSIS ONLY) As Ordered ONE; -ISOVUE-300 61% 50ML VIAL (Q9967) As Ordered ONE; -LIDOCAINE 2% MDV 20 ML VIAL As Ordered ONE; -MIDAZOLAM INJ 2 MG/2 ML VIAL (J2250) As Ordered ONE; -diphenhydrAMINE INJ 50MG/ML VIAL (J1200) As Ordered ONE; -fentaNYL 100 MCG/2 ML INJECTION (J3010) As Ordered ONE
[2019-05-11] MEDS: NS 1,000 ML IV SCH (17:49)
[2019-05-11 17:57] LABS: BASO # 0.1 10^3/uL (0.0-0.2); BASO % 0.5 % (0.0-1.0); EOS # 0.2 10^3/uL (0.0-0.50); EOS % 1.6 % (0.0-3.0); HEMATOCRIT 38.3 % (42.0-52.0); HEMOGLOBIN 12.4 g/dl (13.5-17.5); LYMPH # 1.6 10^3/uL (1.5-4.5); LYMPH % 14.8 % (24.0-44.0); MEAN CORPUSCULAR HEMOGLOBIN 28.8 pg (27.0-33.0); MEAN CORPUSCULAR HGB CONC 32.4 g/dl (32.0-36.5); MEAN CORPUSCULAR VOLUME 89.1 fl (80.0-96.0); MONO % 9.4 % (0.0-5.0); NEUTROPHILS # 8.1 10^3/uL (1.8-7.7); NEUTROPHILS % 73.2 % (36.0-66.0); PLATELET COUNT, AUTOMATED 292 10^3/uL (150-450); WHITE BLOOD COUNT 11.1 10^3/uL (4.0-10.0)
[2019-05-11] MEDS ORDERED: ACETAMINOPHEN 325 MG TAB PO ONE (18:00)
[2019-05-11 18:09] LABS: INR 1.75; PROTHROMBIN TIME 20.2 SECONDS (11.8-14.0)
[2019-05-11] MEDS ORDERED: MIRA3350 PO (18:09)
[2019-05-11] MEDS ORDERED: ACET-683 PO (18:09)
[2019-05-11] MEDS ORDERED: WARF4TAB52 PO (18:09)
[2019-05-11 18:25] LABS: ERYTHROCYTE SEDIMENTATION RATE 80 mm/hr (0-30)
[2019-05-11 18:30] LABS: ALBUMIN 2.7 GM/DL (3.2-5.2); BILIRUBIN,DIRECT 0.1 MG/DL (0.0-0.2); BILIRUBIN,TOTAL 0.5 MG/DL (0.2-1.0); C REACTIVE PROTEIN QUANTITATIV 15.2 MG/DL (0.00-0.30); CALCIUM LEVEL 8.4 MG/DL (8.8-10.2); CREATININE FOR GFR 1.31 MG/DL (0.70-1.30); GLOMERULAR FILTRATION RATE 55.2 (>35); POTASSIUM SERUM 4.5 MEQ/L (3.5-5.1); TOTAL PROTEIN 6.5 GM/DL (6.4-8.2)
--- NOTE | 2019-05-11 18:30 | HPEPDOC ---
General Date of Admission 05/11/2019 Date of Service: May 11, 2019 Attending Physician: TIARA BUSH MD Chief Complaint The patient is a 88-year-old male admitted with a reason for visit of Raheel moreno. History of Present Illness Patient is an 88-year-old male, presenting to the emergency room after being referred by food safety field specialist on account of nonhealing left lower extremity gangrenous ulcer. Patient has a medical history significant for peripheral arterial disease with recent angioplasty to bilateral lower extremities. Today, he went to see the food safety field specialist and had extensive debridement of that left foot and was sent to the emergency room for antibiotic therapy, wound offloading, and wound cultures. History was provided by patient's family at bedside. This year in December, patient had a hip fracture for which he was hospitalized. In the rehabilitation facility he developed heel ulcers to bilateral lower extremities. This was treated with improvement. About a month ago vascular surgeon completed angioplasty of right lower extremity with improvement of blood flow and healing. There was also angioplasty of the left lower extremity, however, after multiple debridement therapy wound has remained nonhealing. Usually patient has wound evaluation and treatment weekly. In the emergency room, laboratory data showed elevated white blood count 11.1. P atient also reported increased pain rating of 5 out of 6 to left lower extremity. He, however, denied any chills, chest pain, shortness of breath. Home Medications Scheduled Amiodarone HCl (Amiodarone HCl) 200 Mg Tab, 200 MG PO 5XW, (Reported) mon, tues, wed, th, fri Atorvastatin Calcium (Atorvastatin Calcium) 80 Mg Tab, 80 MG PO QHS, (Reported) Docusate Sodium (Colace) 100 Mg Cap, 100 MG PO BID, (Reported) Levothyroxine Sodium (Synthroid) 50 Mcg Tab, 50 MCG PO DAILY, (Reported) Loratadine (Loratadine) 10 Mg Tab, 10 MG PO DAILY, (Reported) Metoprolol Tartrate (Metoprolol Tartrate) 25 Mg Tab, 12.5 MG PO BID, (Reported) Multivitamins (Thera M Plus Tablet) 1 Tab Tab, 1 TAB PO DAILY, (Reported) Pantoprazole Sodium (Pantoprazole Sodium) 40 Mg Tab, 40 MG PO QPM, (Reported) Spironolactone (Spironolactone) 25 Mg Tab, 37.5 MG PO DAILY, (Reported) Warfarin Sodium (Warfarin Sodium) 1 Mg Tablet, 2 MG PO QPM, (Reported) REDRAW INR TUES Scheduled PRN Acetaminophen (Acetaminophen) 500 Mg Tablet, 1,000 MG PO Q4HP PRN for PAIN, (Reported) Nitroglycerin (Nitrostat) 0.4 Mg Subl, 0.4 MG SL NITRO PRN for CHEST PAIN, (Reported) Polyethylene Glycol 3350 (Miralax) 119 Gm Powder, 17 GM PO PRN PRN for CONSTIPATION, (Reported) dilute in 8 ounces of water or juice Allergies Coded Allergies: Cephalosporins (Verified Allergy, Intermediate, rash, 03/06/19) clarithromycin (Verified Allergy, Intermediate, rash, 03/06/19) latex (Verified Adverse Reaction, Unknown, "sensitive to", 03/26/19) Past Medical History Medical History CAD Myocardial infarction PAD. Chronic systolic heart failure Ischemic cardiomyopathy, status post implantable defibrillator. CVA Ventricular fibrillation Paroxysmal atrial fibrillation on anticoagulation therapy. Hypothyroidism Obstructive uropathy Hypercholesterolemia Surgical History Pacemaker defibrillator implantation. TURP. Bilateral lower extremity angioplasty. Tonsillectomy Left hip reconstruction Hernia repair Family History Father: Cardiovascular disease Mother: Cancer. Sibling: Cardiovascular disease Social History * Smoker: Denies Alcohol: Denies Drugs: denies A-FIB/CHADSVASC A-FIB History Current/History of A-Fib/PAF?: Yes Current PO Anticoag Therapy: Yes Treatment Treatment ordered: Warfarin Review of Systems Other systems A 10 point pertinent review of systems was completed, negative except as stated in the history of presenting illness. Physical Examination Other physical findings GENERAL: elderly male in NAD SKIN : Warm, dry, dressings to bilateral lower extremities HEENT: Atraumatic, normocephalic, PERRL, moist mucous membrane CARDIOVASCULAR: Regular rate and rhythm, S1S2, no JVD, no edema, distal pulses not palpable RESP: CTAB, no accessory muscle use noted ABDOMEN: BS+ non distended non tender MS: no joint deformities NEURO: Alert and oriented x 3, CN2-12 grossly intact PSYCH: no anxiety or agitation, appropriate mood and affect. Vital Signs Vital Signs Date Time Temp Pulse Resp B/P (MAP) Pulse Ox O2 Delivery O2 Flow Rate FiO2 05/11/19 17:24 05/11/19 17:03 97.8 90 16 98 Room Air Laboratory Data Labs 24H Laboratory Tests 2 05/11/19 17:42: Immature Granulocyte % (Auto) 0.5, White Blood Count 11.1H, Red Blood Count 4.30, Hemoglobin 12.4L, Hematocrit 38.3L, Mean Corpuscular Volume 89.1, Mean Corpuscular Hemoglobin 28.8, Mean Corpuscular Hemoglobin Concent 32.4, Red Cell Distribution Width 17.7H, Platelet Count 292, Neutrophils (%) (Auto) 73.2H, Lymphocytes (%) (Auto) 14.8L, Monocytes (%) (Auto) 9.4H, Eosinophils (%) (Auto) 1.6, Basophils (%) (Auto) 0.5, Neutrophils # (Auto) 8.1H, Lymphocytes # (Auto) 1.6, Monocytes # (Auto) 1.0H, Eosinophils # (Auto) 0.2, Basophils # (Auto) 0.1, Nucleated Red Blood Cells % (auto) 0.0, Erythrocyte Sedimentation Rate 80H, Prothrombin Time 20.2H, Prothromb Time International Ratio 1.75 CBC/BMP Laboratory Tests 05/11/19 17:42 Red Blood Count 4.30, Mean Corpuscular Volume 89.1, Mean Corpuscular Hemoglobin 28.8, Mean Corpuscular Hemoglobin Concent 32.4, Red Cell Distribution Width 17.7 H, Neutrophils (%) (Auto) 73.2 H, Lymphocytes (%) (Auto) 14.8 L, Monocytes (%) (Auto) 9.4 H, Eosinophils (%) (Auto) 1.6, Basophils (%) (Auto) 0.5, Neutrophils # (Auto) 8.1 H, Lymphocytes # (Auto) 1.6, Monocytes # (Auto) 1.0 H, Eosinophils # (Auto) 0.2, Basophils # (Auto) 0.1 Microbiology Microbiology 05/11/19 Blood Culture, Received Pending 05/11/19 Blood Culture, Received Pending Assessment/Plan Lower extremity gangrenous ulcer -Status post wound debridement today at wound center -check wound cultures and blood culture -Start IV antibiotic therapy with vancomycin and meropenem -Consult wound nurse for recommendations for wound care -Offloading of bilateral lower extremities -Arterial ultrasound bilateral lower extremities to assess for vascular competency -Pain control with Vicodin -Consider vascular surgery consult if abnormal ETHAN or persistently nonhealing despite above measures Paroxysmal atrial fibrillation -With prior history of ventricular fibrillation and underlying ischemic cardiomyopathy -Continue antiarrhythmic therapy with amiodarone -Continue anticoagulation therapy with warfarin, target INR 2-3 -Continuous bedside telemetry during hospitalization Chronic systolic heart failure -Strict fluid restriction input and output -Monitoring of electrolytes during hospitalization Ischemic cardiomyopathy -Status post ICD placement -Evaluate ejection fraction 2-D echocardiogram -Continue aspirin, statin, beta blockers Hypothyroidism -Continue Synthroid DVT prophylaxis -Fully anticoagulated with warfarin Patient seen and examined at this time. 88-year-old man who was sent by Dr. Trevizo from clinic today for worsening of chronic left lower extremity vascular wound. He isn't seeing him weekly has been doing quite well since vascular intervention to improve blood flow however the last week he has noticed significantly worsened necrosis and described wet gangrene with exposed bone today. He did do debridement in the clinic and dress it. He recommended admission for IV antibiotics and wound care. At this time we will order an arterial duplex to ensure no further vascular compromise has occurred in the lower extremity. Given a history of exposed bone is certainly have concern for osteomyelitis as well and the patient will likely require a prolonged course of antibiotics in that case. Should he have vascular compromise and is not reversible could consider inpatient vascular consultation he has been seen by Dr. Shan staples in the recent past. Should he fail to improve could consider amputation if it comes to that. For the time being as per Dr. Trevizo we will keep him nonweightbearing on provide him with IV vancomycin and meropenem. He does have some lower extremity edema bilaterally and history of congestive heart failure with no echocardiogram on file. He is able to lay flat with no shortness of breath I will check an echocardiogram and hold off on any aggressive diuresis at this time. Plan / VTE VTE Prophylaxis Ordered?: Yes ASHLEY CHAO May 11, 2019 18:30 TIARA BUSH MD May 11, 2019 20:56
[2019-05-11] MEDS ORDERED: VANCOMYCIN HCL 1,000 MG, VIAL MATE ADAPTER 1 EACH in D5W 250 ML IV ONE (19:45)
[2019-05-11] MEDS ORDERED: MEROPENEM INJ 1 GM in APPROPRIATE DILUENT 1 EA IV ONE (20:15)
[2019-05-11] MEDS ORDERED: MIRALAX *UNIT DOSE* 17GM PACKET PO PRN (20:30)
[2019-05-11] MEDS ORDERED: PILL CUTTER 1 EACH XX PRN (21:15)
[2019-05-11 21:30] VITALS: BP 120/58
[2019-05-11] MEDS: ATORVASTATIN 20 MG TAB PO SCH (21:50)
[2019-05-11] MEDS: PANTOPRAZOLE 40MG TAB (PROTONIX) PO SCH (21:51)
[2019-05-11] MEDS: DOCUSATE SODIUM 100 MG CAP PO SCH (21:51)
[2019-05-11] MEDS: METOPROLOL TART 12.5 MG PER 1/2 TAB PO SCH (21:53)
[2019-05-11] MEDS: WARFARIN SOD 2 MG TAB PO SCH (21:55)
[2019-05-12 02:00] VITALS: BP 110/60
[2019-05-12] MEDS: NS 1,000 ML IV SCH ×3 (02:00→13:15)
[2019-05-12] MEDS: LEVOTHYROXINE 50MCG TABLET (0.05MG) PO SCH (05:32)
[2019-05-12] MEDS: MEROPENEM INJ 1 GM in APPROPRIATE DILUENT 1 EA IV SCH ×3 (05:32→22:01)
[2019-05-12 05:55] LABS: HEMATOCRIT 35.4 % (42.0-52.0); HEMOGLOBIN 11.5 g/dl (13.5-17.5); MEAN CORPUSCULAR HEMOGLOBIN 28.8 pg (27.0-33.0); MEAN CORPUSCULAR HGB CONC 32.5 g/dl (32.0-36.5); MEAN CORPUSCULAR VOLUME 88.5 fl (80.0-96.0); PLATELET COUNT, AUTOMATED 268 10^3/uL (150-450); WHITE BLOOD COUNT 9.2 10^3/uL (4.0-10.0)
[2019-05-12 06:00] VITALS: BP 132/68
[2019-05-12 06:06] LABS: INR 1.78; PROTHROMBIN TIME 20.5 SECONDS (11.8-14.0)
[2019-05-12 06:27] LABS: ALBUMIN 2.3 GM/DL (3.2-5.2); ALT/SGPT 17 U/L (12-78); BILIRUBIN,TOTAL 0.4 MG/DL (0.2-1.0); BLOOD UREA NITROGEN 20 MG/DL (7-18); CALCIUM LEVEL 8.3 MG/DL (8.8-10.2); CARBON DIOXIDE LEVEL 23 MEQ/L (21-32); CHLORIDE LEVEL 105 MEQ/L (98-107); CREATININE FOR GFR 0.94 MG/DL (0.70-1.30); GLOMERULAR FILTRATION RATE > 60.0 (>35); GLUCOSE, FASTING 95 MG/DL (70-100); MAGNESIUM LEVEL 1.8 MG/DL (1.8-2.4); POTASSIUM SERUM 3.9 MEQ/L (3.5-5.1); SODIUM LEVEL 137 MEQ/L (136-145); TOTAL PROTEIN 6.7 GM/DL (6.4-8.2)
--- NOTE | 2019-05-12 09:04 | REP ---
Clinical: Symptoms related to atherosclerotic disease and nonhealing ulcer. Technique: Real time izaguirre scale and color Doppler evaluation of the bilateral lower extremity arterial vasculature using linear high frequency transducer. Findings: Examination of the bilateral distal calf/ankles cannot be performed due to overlying bandage material. Mild bilateral atheromatous plaquing is appreciated without obvious areas of focal stenosis identified. Right lower extremity demonstrates triphasic arterial wave pattern from the common femoral artery to the distal superficial femoral artery with transition to monophasic wave pattern at the level of the popliteal artery. Left lower extremity demonstrates triphasic arterial wave pattern from the common femoral artery to the proximal superficial femoral artery with transition to monophasic wave pattern at the mid superficial femoral artery level. Peak systolic velocities (cm/sec) RIGHT LEFT Common femoral artery 146.4 167.2 Profunda femoris 83.2 74.1 SFA (proximal) 139.5 143.0 SFA (mid) 111.3 114.0 SFA (distal) 93.7 129.7 Popliteal artery 94.9 111.2 GIAN (prox.) 85.2 61.1 Tibioperoneal trunk 113.1 101.0 FOOD AND NUTRITION SERVICES ASSISTANT (prox.) 91.1 105.2 FOOD AND NUTRITION SERVICES ASSISTANT (distal) -- -- GIAN (distal) -- -- Impression: Mild bilateral atheromatous changes without appreciable areas of focal narrowing. Electronically Signed by Marck Villaseñor MD 05/12/2019 08:56 A
[2019-05-12] MEDS: MULTIVITAMINS/MINERALS THERAP 1 TAB PO SCH (09:57)
[2019-05-12] MEDS: DOCUSATE SODIUM 100 MG CAP PO SCH ×2 (09:57→22:00)
[2019-05-12] MEDS: AMIODARONE 200 MG TAB (PACERONE) PO SCH (09:58)
[2019-05-12] MEDS: LORATADINE 10 MG TAB PO SCH (09:58)
[2019-05-12] MEDS: SPIRONOLACTONE 25 MG TAB PO SCH (09:58)
[2019-05-12] MEDS: METOPROLOL TART 12.5 MG PER 1/2 TAB PO SCH ×2 (09:59→22:05)
[2019-05-12 10:00] VITALS: BP 115/56
[2019-05-12 14:00] VITALS: BP 120/58
--- NOTE | 2019-05-12 14:01 | CR ---
DATE OF CONSULTATION: 05/12/2019 Consult requested by hospitalist Dr. Blair This is regarding dressing changes and wound care recommendations. HISTORY OF PRESENT ILLNESS: 88-year-old non-diabetic male recently fractured his left hip which required orthopedic surgery. Postoperatively, the patient was placed in rehabilitation in [place]. At that time he developed pressure injuries stage IV involving the right and left heels. He was discharged and eventually referred to our wound care center for evaluation and treatment. The patient was found to have low ABIs consistent with peripheral vascular disease and therefore was referred for a vascular surgical intervention. The patient had angioplasty involving the right lower extremity and the left lower extremity, which was deemed successful. In general the patient was doing well with weekly visits at our wound care center. Treatment included wound debridement, application of collagen (Endoform) and Hydrofera Blue foam with a foam cover dressing. Offloading heel float boots were obtained. T The patient had been using a walking removable brace utilized for foot drop and early ambulation, prescribed in [place] which has recently caused significant trauma to his left foot. When seen yesterday, 05/11/2019, the patient's left foot had deteriorated significantly. The original heel wound had now become necrotic with exposed bone and the patient developed a new black eschar involving the lateral mid foot. This was fluctuant and the dorsal aspect of the foot showed cellulitis and 4+ edema. 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 He was accompanied by his daughter at the clinic and was told that the patient would require hospitalization. , I performed extensive wound debridement using local anesthesia 2% lidocaine without epinephrine and using sharp dissection with scissors, forceps and scalpel, removing all necrotic tissue down to the underlying bone. This was done for both lateral mid foot and heel wounds. Using a bone rongeur, the superficial cortex of the bone was partially excised to promote granulation tissue. The patient is on anticoagulant therapy and for hemostasis. This was controlled with Surgicel. Wounds were then covered with OptiLocks and a Kerlix and the patient was referred for admission. The patient also has a right heel ulcer which shows significant improvement with granulation tissue. No deep structures seen. This was debrided as well and covered with a foam dressing. The patient also has superficial wounds involving the anterior mid tibial level which were a result of the offloading brace that he had been utilizing. On a clinical basis, the patient has osteomyelitis of the left foot, extensive 4+ gravitational edema with cellulitis. Treatment should include wound culture, IV antibiotics bedrest, mild compression with either a Tubigrip stocking and/or two-layer compression wrap. Dressing changes should be on an every other day basis. The wound should be cleansed with Vashe wound cleanser for 10 minutes then the wounds should be dressed with Endoform and Hydrofera Blue transfer dressing and be secured with an OptiLock and Kerlix and then mild compression applied. The right heel wound, which has shown significant improvement can be dressed with Hydrofera Blue and a heel foam dressing or just a foam dressing depending upon the amount of drainage. If drainage is significant. Hydrofera Blue would be acceptable if there is minimal drainage, a foam dressing should suffice. The left lower extremity mid tibial wound can be dressed with a foam dressing. As the patient has had bilateral angioplasty a followup arterial ultrasound is indicated and if need be reconsulting with vascular surgery would be indicated. The patient may be out of bed, however prolonged periods should not be used and the mainstay is to have the patient at bedrest to decompress and treat the gravitational dependent edema. Of paramount importance is bilateral heel float boots these are the blue soft Lev cloth boots they should be checked for placement ensuring that they fit appropriately. The metallic mental offloading boots are contraindicated and should not be used in the patient's care. I have discussed this in detail with the attending Dr. Blair and if she has any issues, she can order a telemedicine consult and we can further evaluate this. Supplement to the patient's diet utilizing a protein drinks such as Ensure and amino acid supplements such as Delano are also indicated; Ensure once a day, the Delano two a day. The patient's past medical history significant for congestive heart failure, cardiac decompensation due to enlarged heart. The patient does have a pacemaker and a defibrillator in place. Offloading mattress should be also utilized as the patient is at risk for developing any pressure injuries and/or deep tissue injuries involving the sacrum. The 45 degrees angle while in bed is contraindicated. The patient should be lying flat or up at a 90 degrees angle. Routine change of position every 2 hours is also indicated as per standard nursing care. MTDD
[2019-05-12] MEDS: NORCO, ANEXSIA 5/325MG TABLET (HYDROcodone/ACETAMINOPHEN) PO PRN (16:11)
[2019-05-12] MEDS: WARFARIN SOD 2 MG TAB PO SCH (16:11)
[2019-05-12 18:00] VITALS: BP 106/51
[2019-05-12 22:00] VITALS: BP 103/54
[2019-05-12] MEDS: PANTOPRAZOLE 40MG TAB (PROTONIX) PO SCH (22:00)
[2019-05-12] MEDS: ATORVASTATIN 20 MG TAB PO SCH (22:00)
[2019-05-13 02:00] VITALS: BP 103/54
[2019-05-13 06:00] VITALS: BP 106/56
[2019-05-13] MEDS: MEROPENEM INJ 1 GM in APPROPRIATE DILUENT 1 EA IV SCH ×3 (06:11→21:27)
[2019-05-13] MEDS: LEVOTHYROXINE 50MCG TABLET (0.05MG) PO SCH (06:11)
[2019-05-13 07:04] LABS: PROTHROMBIN TIME 22.5 SECONDS (11.8-14.0)
[2019-05-13] MEDS: DOCUSATE SODIUM 100 MG CAP PO SCH ×2 (09:10→21:27)
[2019-05-13] MEDS: SPIRONOLACTONE 25 MG TAB PO SCH (09:10)
[2019-05-13] MEDS: MULTIVITAMINS/MINERALS THERAP 1 TAB PO SCH (09:10)
[2019-05-13] MEDS: METOPROLOL TART 12.5 MG PER 1/2 TAB PO SCH ×2 (09:10→21:26)
[2019-05-13] MEDS: LORATADINE 10 MG TAB PO SCH (09:10)
[2019-05-13] MEDS: ACETAMINOPHEN TAB 650MG DOSE (2X325MG) PO PRN ×2 (09:11→17:14)
[2019-05-13] MEDS: NS 1,000 ML IV SCH (09:12)
[2019-05-13 10:00] VITALS: BP 126/61
[2019-05-13 14:00] VITALS: BP 107/54
--- NOTE | 2019-05-13 15:02 | ECHO ---
DATE OF PROCEDURE: 05/12/2019 DATE OF : 1930 AGE: 88 GENDER: Male HEIGHT: 72 inches WEIGHT: 158 pounds BODY SURFACE AREA: 1.92 m2 INPATIENT: [address] [place] [address], room 4232 REFERRING PROVIDER: Dmitry Durán NP INDICATION: Heart failure (unspecified). MEASUREMENTS: 2-D Measurements: RV: 3.3 cm LV: 4.4 cm Septum: 1.1 cm Posterior wall: 1.1 cm Aortic root: 3.9 cm LA: 4.2 cm LVEF: 25% query Doppler Measurements: AV: 1.2 m/s LVOT: 0.89 m/s LVOT diameter: 1.9 cm MV - E 39, A 79, EA ratio 0.5 Early mitral deceleration time: 313 ms E prime: 4.8 A prime: 11 E/E prime ratio: 8.2 PV: 0.75 m/s Pulmonary artery acceleration time: 120 ms RVSP: 29-34 mmHg IVC: 1.8 cm COMMENTS: Normal sinus rhythm with intraventricular conduction disturbance. Technically challenging study in light of the patient's body habitus but diagnostically useful information was still obtained. M-mode and two-dimensional echocardiography was performed with pulsed, continuous wave, color flow and tissue Doppler studies. At least moderately dilated left ventricle with akinesis of the mid and distal anterior arceo, the entire apex and the mid to distal septum with moderately severe impairment of global resting systolic function. Mildly dilated left atrium with Doppler evidence of an impairment of LV diastolic function but currently normal estimated mean left atrial pressure. Normal right heart chamber sizes and wall motion with currently estimated pulmonary arterial pressure that was at least mildly increased. Normal IVC size with slightly reduced respiratory collapse suggestive of a central venous pressure of at least 10 mmHg. Mild aortic valvular sclerosis without functional abnormality. Normal aortic root size. Mild degenerative changes of the mitral valvular apparatus without inflow tract obstruction and only very mild insufficiency. Normal appearing tricuspid valve with mild insufficiency. Pacing leads could be visualized traversing right heart structures. No apparent separate intracardiac mass or mural thrombus. No pericardial effusion. MTDD
[2019-05-13] MEDS: WARFARIN SOD 2 MG TAB PO SCH (17:13)
[2019-05-13] MEDS: ATORVASTATIN 20 MG TAB PO SCH (21:26)
[2019-05-13] MEDS: PANTOPRAZOLE 40MG TAB (PROTONIX) PO SCH (21:27)
[2019-05-13 22:00] VITALS: BP 102/50
--- NOTE | 2019-05-13 23:10 | IPNPDOC ---
Text Note Date of Service The patient was seen on 05/13/19. NOTE Pt was seen and examined at bedside. Denies any acute complaints. No overnight events. Denies LE pain. Dressing changed by RN. cont nutrition supplements. Denies dyspnea, tachypnea. PHE: VS: Temp 97.8, HR 90, RR 16, BP 126/59 General: AAOx3 NAD speech and memory intact HEENT: VALERIE EOMI no JVD neck supple head atraumatic mucosa moist CVS: S1 S2 no murmur gallops Lungs: clear bilat no wheezing or rales Ext: Lt LE under dressing, s/p debridement Neuro: motor grossly intact Psych:mood affect appropriate Labs no electrolytes abnormalities Liver profile WNL INR subtherapeutic A/P 1-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 Wound culture Blood Culture Wound Care as per Dr. Barajas's recommendations Nutrition Supplements offloading boots Broad spectrum antibiotics Vancomycin and Meropenem to cover MRSA, gram negatives and anaerobes Pharmacy to dose vancomycin F/U Arterial Duplex 2-Ischemic Cardiomyopathy EF 25% S/P ICD Pacemaker/Defibrilator Clinically pt is euvolemic Fluid restriction 1500 ml/24hr Strict I and O Cont Spironolactone Cont betablocker Statin 3-Hx of Atrial Fibrillation Rate Controlled Cont Amiodarone Cont anticoagulation Warfarin Daily INR goal INR 2-3 4-Hypothyroidism check TSH Cont Levothyroxin PT/OT to evalulate and treat DVT Prophylaxis on PO Anticoagulation VS,Fishbone, I+O VS, Fishbone, I+O Vital Signs Date Time Temp Pulse Resp B/P (MAP) Pulse Ox O2 Delivery O2 Flow Rate FiO2 05/13/19 22:00 97.6 67 20 102/50 (67) 93 05/11/19 21:21 Room Air I&O- Last 24 Hours up to 6 AM 05/13/19 06:00 Intake Total 2450 ml Output Total 200 ml Balance 2250 ml VIC CHANG MD May 13, 2019 23:10
--- NOTE | 2019-05-13 23:10 | IPNPDOC ---
Text Note Date of Service The patient was seen on 05/12/19. NOTE Pt was seen and examined at bedside. Pt is awake alert and oriented. Pt is pleasant gentleman in no acute distress. Denies any chest pain or palpitations. Pt denies any respiratory distress. Denies LE pain. Pt in bed rest at this point. Good po intake. No change in BM. No urinary symptoms. PHE: VS: Temp 97.0 RR 18 AR 62 BP 115/56 General: AAOx3 NAD speech and memory intact HEENT: VALERIE EOMI no JVD neck supple head atraumatic mucosa moist CVS: S1 S2 no murmur gallops Lungs: clear bilat no wheezing or rales Ext: Lt LE under dressing, s/p debridement at Dr. Barajas's office Neuro: motor grossly intact Psych:mood affect appropriate Labs: WBC 9.2 from 11.1 H/H 11.5/35.4 Plt 268 Na 137, K 3.9, Cr 0.94 Liver profile WNL A/P 1-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 Wound culture Blood Culture Wound Care as per Dr. Barajas's recommendations Nutrition Supplements offloading boots Broad spectrum antibiotics Vancomycin and Meropenem to cover MRSA, gram negatives and anaerobes Pharmacy to dose vancomycin Arterial Duplex 2-Ischemic Cardiomyopathy EF 25% S/P ICD Pacemaker/Defibrilator Clinically pt is euvolemic Fluid restriction 1500 ml/24hr Strict I and O Cont Spironolactone Cont betablocker Statin 3-Hx of Atrial Fibrillation Rate Controlled Cont Amiodarone Cont anticoagulation Warfarin Daily INR goal INR 2-3 4-Hypothyroidism check TSH Cont Levothyroxin PT/OT to evalulate and treat DVT Prophylaxis on PO Anticoagulation VS,Fishbone, I+O VS, Fishbone, I+O Vital Signs Date Time Temp Pulse Resp B/P (MAP) Pulse Ox O2 Delivery O2 Flow Rate FiO2 05/13/19 22:00 97.6 67 20 102/50 (67) 93 05/11/19 21:21 Room Air I&O- Last 24 Hours up to 6 AM 05/13/19 06:00 Intake Total 2450 ml Output Total 200 ml Balance 2250 ml VIC CHANG MD May 13, 2019 23:10
[2019-05-14] MEDS: MEROPENEM INJ 1 GM in APPROPRIATE DILUENT 1 EA IV SCH ×3 (04:50→22:15)
[2019-05-14] MEDS: LEVOTHYROXINE 50MCG TABLET (0.05MG) PO SCH (05:00)
[2019-05-14 06:00] VITALS: BP 116/59
[2019-05-14 06:21] LABS: INR 2.12; PROTHROMBIN TIME 23.5 SECONDS (11.8-14.0)
[2019-05-14] MEDS: MULTIVITAMINS/MINERALS THERAP 1 TAB PO SCH (09:00)
[2019-05-14] MEDS: DOCUSATE SODIUM 100 MG CAP PO SCH ×2 (09:00→21:17)
[2019-05-14] MEDS: SPIRONOLACTONE 25 MG TAB PO SCH (09:01)
[2019-05-14] MEDS: METOPROLOL TART 12.5 MG PER 1/2 TAB PO SCH ×2 (09:01→21:18)
[2019-05-14] MEDS: LORATADINE 10 MG TAB PO SCH (09:01)
[2019-05-14] MEDS: NORCO, ANEXSIA 5/325MG TABLET (HYDROcodone/ACETAMINOPHEN) PO PRN (12:29)
[2019-05-14 14:00] VITALS: BP 113/56
[2019-05-14] MEDS: WARFARIN SOD 2 MG TAB PO SCH (17:04)
[2019-05-14] MEDS: ACETAMINOPHEN TAB 650MG DOSE (2X325MG) PO PRN (17:04)
--- NOTE | 2019-05-14 19:17 | IPNPDOC ---
Text Note Date of Service The patient was seen on 05/14/19. NOTE Pt was seen and examined at bedside. Pt is afebrile. VS WNL. Denies any dyspnea or tachypnea. Denies any LE pain. Tolerating po intake. Used to walk with walker prior to hospitalization. PHE: General: AAOx3 NAD speech and memory intact HEENT: VALERIE EOMI no JVD neck supple head atraumatic mucosa moist CVS: S1 S2 no murmur gallops Lungs: clear bilat no wheezing or rales Ext: Lt LE under dressing, s/p debridement Neuro: motor grossly intact Psych:mood affect appropriate Vital Signs Date Time Temp Pulse Resp B/P (MAP) Pulse Ox O2 Delivery O2 Flow Rate FiO2 05/14/19 22:00 97.4 68 18 109/51 (70) 96 05/14/19 21:18 68 109/57 05/14/19 14:00 97.8 71 17 113/56 (75) 99 05/14/19 13:09 18 05/14/19 12:29 18 05/14/19 09:01 68 116/59 05/14/19 06:00 98.0 68 17 116/59 (78) 95 Intake & Output 05/15/19 06:00 Intake Total 1370 ml Output Total 100 ml Balance 1270 ml Laboratory Tests 05/14/19 05:16: Prothrombin Time 23.5H, Prothromb Time International Ratio 2.12 Microbiology 05/12/19 MRSA Screen - Final, Complete Current Medications Medications (Trade) Dose Ordered Sig/Alondra Route PRN Reason Start Time Stop Time Status Last Admin Dose Admin Acetaminophen (Tylenol Tab) 650 mg Q4HP PRN PO PAIN OR FEVER 05/11/19 19:45 05/14/19 17:04 650 MG Acetaminophen/ Hydrocodone Bitart ([place], Anexsia 5/325) 1 tab Q4HP PRN PO PAIN 05/11/19 19:45 05/14/19 12:29 1 TAB Amiodarone HCl (Pacerone, Cordarone) 200 mg MoTuWeThFr@0900 PO 05/12/19 09:00 05/12/19 09:58 200 MG Atorvastatin Calcium (Lipitor) 80 mg QHS PO 05/11/19 21:00 05/14/19 21:17 80 MG Docusate Sodium (Colace) 100 mg BID PO 05/11/19 21:00 05/14/19 21:17 100 MG Levothyroxine Sodium (Synthroid) 50 mcg DAILY@0600 PO 05/12/19 06:00 05/14/19 05:00 50 MCG Loratadine (Claritin) 10 mg DAILY PO 05/12/19 09:00 05/14/19 09:01 10 MG Meropenem 1 gm/IV Miscellaneous Supplies 50 ml @ 100 mls/hr Q8H IV 05/12/19 05:00 05/14/19 22:15 100 MLS/HR Metoprolol Tartrate (Lopressor) 12.5 mg BID PO 05/11/19 21:00 05/14/19 21:18 12.5 MG Multivitamins (Theragram-M) 1 tab DAILY PO 05/12/19 09:00 05/14/19 09:00 1 TAB Pantoprazole Sodium (Protonix) 40 mg QPM PO 05/11/19 21:00 05/14/19 21:17 40 MG Spironolactone (Aldactone) 37.5 mg DAILY PO 05/12/19 09:00 05/14/19 09:01 37.5 MG Warfarin Sodium (Coumadin) 2 mg DAILY@1700 PO 05/11/19 17:00 05/14/19 17:04 2 MG A/P 1-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 Wound culture Blood Culture Wound Care as per Dr. Barajas's recommendations Nutrition Supplements offloading boots Broad spectrum antibiotics Vancomycin and Meropenem to cover MRSA, gram negatives and anaerobes Pharmacy to dose vancomycin Arterial Duplex unremarkable for arterial stenosis 2-Ischemic Cardiomyopathy EF 25% S/P ICD Pacemaker/Defibrilator Clinically pt is euvolemic Fluid restriction 1500 ml/24hr Strict I and O Cont Spironolactone Cont betablocker Statin 3-Hx of Atrial Fibrillation Rate Controlled Cont Amiodarone Cont anticoagulation Warfarin Daily INR goal INR 2-3 4-Hypothyroidism check TSH Cont Levothyroxin PT/OT to evalulate and treat DVT Prophylaxis on PO Anticoagulation VS,Fishbone, I+O VS, Fishbone, I+O Vital Signs Date Time Temp Pulse Resp B/P (MAP) Pulse Ox O2 Delivery O2 Flow Rate FiO2 05/14/19 14:00 97.8 71 17 113/56 (75) 99 05/11/19 21:21 Room Air I&O- Last 24 Hours up to 6 AM 05/14/19 06:00 Intake Total 1470 ml Output Total 900 ml Balance 570 ml VIC CHANG MD May 14, 2019 19:17
[2019-05-14] MEDS ORDERED: VANCOMYCIN HCL 1,000 MG, VIAL MATE ADAPTER 1 EACH in D5W 250 ML IV ONE (20:15)
[2019-05-14] MEDS: PANTOPRAZOLE 40MG TAB (PROTONIX) PO SCH (21:17)
[2019-05-14] MEDS: ATORVASTATIN 20 MG TAB PO SCH (21:17)
[2019-05-14 22:00] VITALS: BP 109/51
[2019-05-15 02:00] VITALS: BP 104/2
[2019-05-15] MEDS: LEVOTHYROXINE 50MCG TABLET (0.05MG) PO SCH (05:41)
[2019-05-15] MEDS: MEROPENEM INJ 1 GM in APPROPRIATE DILUENT 1 EA IV SCH ×3 (05:41→20:09)
[2019-05-15 05:50] LABS: BASO # 0.1 10^3/uL (0.0-0.2); BASO % 0.5 % (0.0-1.0); EOS # 0.6 10^3/uL (0.0-0.50); HEMATOCRIT 33.6 % (42.0-52.0); LYMPH % 21.2 % (24.0-44.0); MEAN CORPUSCULAR HEMOGLOBIN 28.4 pg (27.0-33.0); MEAN CORPUSCULAR HGB CONC 32.7 g/dl (32.0-36.5); MEAN CORPUSCULAR VOLUME 86.8 fl (80.0-96.0); MONO # 0.8 10^3/uL (0.0-0.8); MONO % 8.3 % (0.0-5.0); NEUTROPHILS % 63.8 % (36.0-66.0); PLATELET COUNT, AUTOMATED 265 10^3/uL (150-450); RED BLOOD COUNT 3.87 10^6/uL (4.30-6.10); WHITE BLOOD COUNT 9.4 10^3/uL (4.0-10.0)
[2019-05-15 06:00] VITALS: BP 104/56
[2019-05-15 06:00] LABS: INR 2.17
--- NOTE | 2019-05-15 06:33 | PHACANCOPD ---
PHARMACY VANCOMYCIN DOSING Pt Demographics Demographics Patient Age:88 , Weight:86.700 , Gender: male Adjusted Body Weight Date: 05/15/19, Adjusted Body Weight: [86.7] Kg(actual wt.) Vancomycin Vancomycin indication: osteomyelitis Vancomycin Target Ranges: 15-20 mcg/ml Vancomycin Load Y/N: No Load Dose Date Time Vancomycin Load Dose: Date: Time: Vancomycin Dose Date: 05/15/19. Current Vancomycin Dose: [1 gm 18h] Intermittent Dosing?: No Labs Labs Laboratory Tests 05/15/19 05:24 Red Blood Count 3.87 L, Mean Corpuscular Volume 86.8, Mean Corpuscular Hemoglobin 28.4, Mean Corpuscular Hemoglobin Concent 32.7, Red Cell Distribution Width 17.6 H, Neutrophils (%) (Auto) 63.8, Lymphocytes (%) (Auto) 21.2 L, Monocytes (%) (Auto) 8.3 H, Eosinophils (%) (Auto) 6.0 H, Basophils (%) (Auto) 0.5, Neutrophils # (Auto) 6.0, Lymphocytes # (Auto) 2.0, Monocytes # (Auto) 0.8, Eosinophils # (Auto) 0.6 H, Basophils # (Auto) 0.1, Calcium Level 8.6 L, Aspartate Amino Transf (AST/SGOT) 16, Alanine Aminotransferase (ALT/SGPT) 17, Alkaline Phosphatase 72, Total Bilirubin 0.3, Total Protein 6.4, Albumin 2.2 L Micro Microbiology 05/11/19 Blood Culture - Preliminary, Resulted No Growth after 72 hours. All specime... 05/11/19 Blood Culture - Preliminary, Resulted No Growth after 72 hours. All specime... 05/12/19 MRSA Screen - Final, Complete 05/14/19 Wound Culture, Received Pending Creatinine Clearance Date:05/15/19. Creatinine Clearance: [62.8].calculated Assessment and Plan Maintaining Current Dose?: Yes Reason for dose change: No Dose Change Pharmacist Note Pharmacist Note Date: 05/15/19. Pharmacist note:88YOM W/OSTEOMYELITIS ,SCR=1.04,CRCL=62.8(cindy culated),allergies:cephalosporins,biaxin,latex,.Treating w/Meropenum 1 gm IV Q8H and Pharmacy dosed Vancomycin.Vancomycin 1 gram administered 05/14@2100.-Will begin continue with a 1 gram q8Hour regimen starting 05/15@1200. First trough is scheduled for 05/16@0500(prior to the 3rd dose)-will continue to monitor and adjust dose/schedule as needed JAY JAY JUAREZ PHARMACY May 15, 2019 06:33
[2019-05-15] MEDS: AMIODARONE 200 MG TAB (PACERONE) PO SCH (09:38)
[2019-05-15] MEDS: DOCUSATE SODIUM 100 MG CAP PO SCH ×2 (09:38→20:08)
[2019-05-15] MEDS: ACETAMINOPHEN TAB 650MG DOSE (2X325MG) PO PRN (09:38)
[2019-05-15] MEDS: MULTIVITAMINS/MINERALS THERAP 1 TAB PO SCH (09:38)
[2019-05-15] MEDS: METOPROLOL TART 12.5 MG PER 1/2 TAB PO SCH ×2 (09:39→20:08)
[2019-05-15] MEDS: LORATADINE 10 MG TAB PO SCH (09:39)
[2019-05-15] MEDS: SPIRONOLACTONE 25 MG TAB PO SCH (09:39)
[2019-05-15] MEDS ORDERED: VANCOMYCIN HCL 1,000 MG, VIAL MATE ADAPTER 1 EACH in D5W 250 ML IV SCH (12:00)
[2019-05-15 14:00] VITALS: BP 124/80
[2019-05-15] MEDS: WARFARIN SOD 2 MG TAB PO SCH (16:28)
[2019-05-15] MEDS: PANTOPRAZOLE 40MG TAB (PROTONIX) PO SCH (20:08)
[2019-05-15] MEDS: ATORVASTATIN 20 MG TAB PO SCH (20:09)
[2019-05-15 22:00] VITALS: BP 107/54
--- NOTE | 2019-05-15 22:26 | IPNPDOC ---
Text Note Date of Service The patient was seen on 05/15/19. NOTE Pt was seen and examined at bedside. Pt is afebrile. VS WNL. Denies any dyspnea or tachypnea. Denies any LE pain. Tolerating po intake. Used to walk with walker prior to hospitalization. Encouraged to work with physical therapy. PHE: General: AAOx3 NAD speech and memory intact HEENT: VALERIE EOMI no JVD neck supple head atraumatic mucosa moist CVS: S1 S2 no murmur gallops Lungs: clear bilat no wheezing or rales Ext: Lt LE under dressing, s/p debridement Neuro: motor grossly intact Psych:mood affect appropriate Vital Signs Date Time Temp Pulse Resp B/P (MAP) Pulse Ox O2 Delivery O2 Flow Rate FiO2 05/15/19 22:00 97.4 73 16 107/54 (71) 94 05/15/19 20:08 88 107/58 05/15/19 14:00 98.4 90 17 124/80 (95) 98 05/15/19 09:39 80 118/58 05/15/19 09:00 16 05/15/19 06:00 97.3 69 18 104/56 (72) 99 Intake & Output 05/15/19 06:00 Intake Total 1370 ml Output Total 100 ml Balance 1270 ml Laboratory Tests 05/15/19 05:24: White Blood Count 9.4, Red Blood Count 3.87L, Hemoglobin 11.0L, Hematocrit 33.6L, Mean Corpuscular Volume 86.8, Mean Corpuscular Hemoglobin 28.4, Mean Corpuscular Hemoglobin Concent 32.7, Red Cell Distribution Width 17.6H, Platelet Count 265, Neutrophils (%) (Auto) 63.8, Lymphocytes (%) (Auto) 21.2L, Monocytes (%) (Auto) 8.3H, Eosinophils (%) (Auto) 6.0H, Basophils (%) (Auto) 0.5, Neutrophils # (Auto) 6.0, Lymphocytes # (Auto) 2.0, Monocytes # (Auto) 0.8, Eosinophils # (Auto) 0.6H, Basophils # (Auto) 0.1, Immature Granulocyte % (Auto) 0.2, Nucleated Red Blood Cells % (auto) 0.0, Prothrombin Time 24.0H, Prothromb Time International Ratio 2.17 Microbiology 05/12/19 MRSA Screen - Final, Complete Current Medications Medications (Trade) Dose Ordered Sig/Alondra Route PRN Reason Start Time Stop Time Status Last Admin Dose Admin Acetaminophen (Tylenol Tab) 650 mg Q4HP PRN PO PAIN OR FEVER 05/11/19 19:45 05/15/19 09:38 650 MG Acetaminophen/ Hydrocodone Bitart ([place], Anexsia 5/325) 1 tab Q4HP PRN PO PAIN 05/11/19 19:45 05/14/19 12:29 1 TAB Amiodarone HCl (Pacerone, Cordarone) 200 mg MoTuWeThFr@0900 PO 05/12/19 09:00 05/15/19 09:38 200 MG Atorvastatin Calcium (Lipitor) 80 mg QHS PO 05/11/19 21:00 05/15/19 20:09 80 MG Docusate Sodium (Colace) 100 mg BID PO 05/11/19 21:00 05/15/19 20:08 100 MG Levothyroxine Sodium (Synthroid) 50 mcg DAILY@0600 PO 05/12/19 06:00 05/15/19 05:41 50 MCG Loratadine (Claritin) 10 mg DAILY PO 05/12/19 09:00 05/15/19 09:39 10 MG Meropenem 1 gm/IV Miscellaneous Supplies 50 ml @ 100 mls/hr Q8H IV 05/12/19 05:00 05/15/19 20:09 100 MLS/HR Metoprolol Tartrate (Lopressor) 12.5 mg BID PO 05/11/19 21:00 05/15/19 20:08 12.5 MG Multivitamins (Theragram-M) 1 tab DAILY PO 05/12/19 09:00 05/15/19 09:38 1 TAB Pantoprazole Sodium (Protonix) 40 mg QPM PO 05/11/19 21:00 05/15/19 20:08 40 MG Spironolactone (Aldactone) 37.5 mg DAILY PO 05/12/19 09:00 05/15/19 09:39 37.5 MG Vancomycin HCl 1000 mg/IV Miscellaneous Supplies 1 each/ Dextrose 270 ml @ 270 mls/hr Q18H IV 05/15/19 12:00 05/15/19 12:26 270 MLS/HR Warfarin Sodium (Coumadin) 2 mg DAILY@1700 PO 05/11/19 17:00 05/15/19 16:28 2 MG A/P 1-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 Wound culture Blood Culture Wound Care as per Dr. Barajas's recommendations Nutrition Supplements offloading boots Broad spectrum antibiotics Vancomycin and Meropenem Pharmacy to dose vancomycin Arterial Duplex unremarkable for arterial stenosis 2-Ischemic Cardiomyopathy EF 25% S/P ICD Pacemaker/Defibrilator Clinically pt is euvolemic Fluid restriction 1500 ml/24hr Strict I and O Cont Spironolactone Cont betablocker Statin 3-Hx of Atrial Fibrillation Rate Controlled Cont Amiodarone Cont anticoagulation Warfarin Daily INR goal INR 2-3 4-Hypothyroidism check TSH Cont Levothyroxin 5-Pt with stage IV heel pressure ulcers present on admission PT/OT to evalulate and treat DVT Prophylaxis on PO Anticoagulation VS,Fishbone, I+O VS, Fishbone, I+O Laboratory Tests 05/15/19 05:24 Red Blood Count 3.87 L, Mean Corpuscular Volume 86.8, Mean Corpuscular Hemoglobin 28.4, Mean Corpuscular Hemoglobin Concent 32.7, Red Cell Distribution Width 17.6 H, Neutrophils (%) (Auto) 63.8, Lymphocytes (%) (Auto) 21.2 L, Monocytes (%) (Auto) 8.3 H, Eosinophils (%) (Auto) 6.0 H, Basophils (%) (Auto) 0.5, Neutrophils # (Auto) 6.0, Lymphocytes # (Auto) 2.0, Monocytes # (Auto) 0.8, Eosinophils # (Auto) 0.6 H, Basophils # (Auto) 0.1 Vital Signs Date Time Temp Pulse Resp B/P (MAP) Pulse Ox O2 Delivery O2 Flow Rate FiO2 05/15/19 22:00 97.4 73 16 107/54 (71) 94 05/11/19 21:21 Room Air I&O- Last 24 Hours up to 6 AM 05/15/19 06:00 Intake Total 1370 ml Output Total 100 ml Balance 1270 ml VIC CHANG MD May 15, 2019 22:26
[2019-05-16] MEDS: MEROPENEM INJ 1 GM in APPROPRIATE DILUENT 1 EA IV SCH ×3 (05:05→20:32)
[2019-05-16 05:49] LABS: INR 2.26; PROTHROMBIN TIME 24.8 SECONDS (11.8-14.0)
[2019-05-16 06:00] VITALS: BP 122/57
[2019-05-16 06:05] LABS: ALBUMIN 2.2 GM/DL (3.2-5.2); ALT/SGPT 21 U/L (12-78); BILIRUBIN,TOTAL 0.3 MG/DL (0.2-1.0); BLOOD UREA NITROGEN 17 MG/DL (7-18); CALCIUM LEVEL 8.2 MG/DL (8.8-10.2); CARBON DIOXIDE LEVEL 26 MEQ/L (21-32); CHLORIDE LEVEL 103 MEQ/L (98-107); CREATININE FOR GFR 0.89 MG/DL (0.70-1.30); GLOMERULAR FILTRATION RATE > 60.0 (>35); GLUCOSE, FASTING 95 MG/DL (70-100); SODIUM LEVEL 139 MEQ/L (136-145); TOTAL PROTEIN 6.4 GM/DL (6.4-8.2); VANCOMYCIN LEVEL TROUGH 12.6 UG/ML (10.0-20.0)
--- NOTE | 2019-05-16 06:14 | PHACANCOPD ---
PHARMACY VANCOMYCIN DOSING Pt Demographics Demographics Patient Age:88 , Weight:86.700 , Gender: male Adjusted Body Weight Date: 05/15/19, Adjusted Body Weight: [86.7] Kg(actual wt.) Events Past 24 Hours Events Past 24 Hours: NO: Dialysis, Diuretic Therapy, Change in CrCl, Fever, E levation in WBC, Pending Diagnostics, Pending Procedures, Other Vancomycin Vancomycin indication: osteomyelitis Vancomycin Target Ranges: 15-20 mcg/ml Vancomycin Load Y/N: No Load Dose Date Time Vancomycin Load Dose: Date: Time: Vancomycin Dose Date: 05/15/19. Current Vancomycin Dose: [1 gm 18h] Intermittent Dosing?: No Labs Labs Item Value Date Time White Blood Count 9.4 10^3/uL 05/15/1924 Glomerular Filtration Rate > 60.0 05/16/19516 Creatinine 0.89 MG/DL 05/16/1917 Blood Urea Nitrogen 17 MG/DL 05/16/19 0517 Vital Signs Label Value Date Time Patient Temperature 97.4 degrees F 05/15/19 2200 Temperature Source Temporal 05/15/19 2200 Micro Microbiology 05/11/19 Blood Culture - Preliminary, Resulted No Growth after 72 hours. All specime... 05/11/19 Blood Culture - Preliminary, Resulted No Growth after 72 hours. All specime... 05/12/19 MRSA Screen - Final, Complete 05/14/19 Wound Culture, Received Pending Creatinine Clearance Date:05/16/19. Creatinine Clearance: [65].calculated Pending Labs Trough 07-02 @1700 Assessment and Plan Maintaining Current Dose?: No Reason for dose change: Trough too low Pharmacist Note Pharmacist Note Date: 05/15/19. Pharmacist note:Trough of 12.6 is below target range. Dose increased to 1000mg q12h. Will continue to monitor and make adjustments as needed. ANTELMO HANNAH PHARMACY May 16, 2019 06:14
[2019-05-16] MEDS: VANCOMYCIN HCL 1,000 MG, VIAL MATE ADAPTER 1 EACH in D5W 250 ML IV SCH ×2 (06:17→19:18)
[2019-05-16] MEDS: LEVOTHYROXINE 50MCG TABLET (0.05MG) PO SCH (06:17)
[2019-05-16] MEDS: LORATADINE 10 MG TAB PO SCH (07:57)
[2019-05-16] MEDS: AMIODARONE 200 MG TAB (PACERONE) PO SCH (07:57)
[2019-05-16] MEDS: MULTIVITAMINS/MINERALS THERAP 1 TAB PO SCH (07:57)
[2019-05-16] MEDS: METOPROLOL TART 12.5 MG PER 1/2 TAB PO SCH ×2 (07:58→20:33)
[2019-05-16] MEDS: DOCUSATE SODIUM 100 MG CAP PO SCH ×2 (07:58→20:34)
[2019-05-16] MEDS: SPIRONOLACTONE 25 MG TAB PO SCH (07:59)
--- NOTE | 2019-05-16 11:02 | IPNPDOC ---
Subjective Date Seen The patient was seen on 05/16/19. Subjective Chief Complaint/HPI No complaints this morning. DOes not have any pain in the feet. Tele conferance with Dr Barajas today. Objective Physical Examination General Exam: Positive: Alert, Cooperative, No Acute Distress Eye Exam: Positive: PERRLA, Conjunctiva & lids normal, EOMI; Negative: Sclera icteric ENT Exam: Positive: Atraumatic, Mucous membr. moist/pink, Pharynx Normal Neck Exam: Positive: Supple; Negative: JVD, thyromegaly Chest Exam: Positive: Clear to auscultation, Normal air movement Heart Exam: Positive: Rate Normal, Regular Rhythm, Normal S1, Normal S2; Negative: Murmurs, Rubs Abdomen Exam: Positive: Normal bowel sounds, Soft; Negative: Tenderness, Hepatospenomegaly Extremity Exam: Negative: Clubbing, Cyanosis, Edema Skin Exam: Positive: Breakdown (bilateral heel stage 4 pressure ulcers, on the left there is extension to the lateral side of the foot. 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 This is a removable brace utilized for foot drop and early ambulation, prescribed in [place] which has recently caused significant trauma to his left foot. When seen in the wound clinic on 05/11/2019, the patient's left foot had deteriorated significantly. The original heel wound had become necrotic with exposed bone and the patient developed a new black eschar involving the lateral mid foot. This was fluctuant and the dorsal aspect of the foot showed cellulitis and 4+ edema. 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 s/p sharp debridement at Wound Care clinic then sent to hospital fro IV antibiotics. Wound culture Blood Culture Wound Care as per Dr. Barajas's recommendations Nutrition Supplements offloading boots Broad spectrum antibiotics Vancomycin and Meropenem to cover MRSA, gram negatives and anaerobes Pharmacy to dose vancomycin Arterial Duplex unremarkable for arterial stenosis Bilateral heel pressure ulcers stage 4 acquired during rehab stay in [place] after hip fracture in Dec 2018 patient has been following at the wound clinic for this and was improving then his brace caused major trauma to the left foot. Peripheral arterial disease of both the lower extremities. 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 Plan/VTE VTE Prophylaxis Ordered?: Yes VS, I&O, 24H, Fishbone Vital Signs/I&O Vital Signs Date Time Temp Pulse Resp B/P (MAP) Pulse Ox O2 Delivery O2 Flow Rate FiO2 05/15/19 22:00 97.4 73 16 107/54 (71) 94 05/11/19 21:21 Room Air I&O- Last 24 Hours up to 6 AM 05/16/19 06:00 Intake Total 1210 ml Output Total 0 ml Balance 1210 ml Laboratory Data 24H LABS Laboratory Tests 2 05/15/19 05:24: Immature Granulocyte % (Auto) 0.2, White Blood Count 9.4, Red Blood Count 3.87L, Hemoglobin 11.0L, Hematocrit 33.6L, Mean Corpuscular Volume 86.8, Mean Corpuscular Hemoglobin 28.4, Mean Corpuscular Hemoglobin Concent 32.7, Red Cell Distribution Width 17.6H, Platelet Count 265, Neutrophils (%) (Auto) 63.8, Lymphocytes (%) (Auto) 21.2L, Monocytes (%) (Auto) 8.3H, Eosinophils (%) (Auto) 6.0H, Basophils (%) (Auto) 0.5, Neutrophils # (Auto) 6.0, Lymphocytes # (Auto) 2.0, Monocytes # (Auto) 0.8, Eosinophils # (Auto) 0.6H, Basophils # (Auto) 0.1, Nucleated Red Blood Cells % (auto) 0.0, Prothrombin Time 24.0H, Prothromb Time International Ratio 2.17 CBC/BMP Laboratory Tests 05/15/19 05:24 Red Blood Count 3.87 L, Mean Corpuscular Volume 86.8, Mean Corpuscular Hemoglobin 28.4, Mean Corpuscular Hemoglobin Concent 32.7, Red Cell Distribution Width 17.6 H, Neutrophils (%) (Auto) 63.8, Lymphocytes (%) (Auto) 21.2 L, Monocytes (%) (Auto) 8.3 H, Eosinophils (%) (Auto) 6.0 H, Basophils (%) (Auto) 0.5, Neutrophils # (Auto) 6.0, Lymphocytes # (Auto) 2.0, Monocytes # (Auto) 0.8, Eosinophils # (Auto) 0.6 H, Basophils # (Auto) 0.1 Microbiology Microbiology 05/11/19 Blood Culture - Preliminary, Resulted No Growth after 72 hours. All specime... 05/11/19 Blood Culture - Preliminary, Resulted No Growth after 72 hours. All specime... 05/12/19 MRSA Screen - Final, Complete 05/14/19 Wound Culture, Received Pending PAOLA CARRERA MD May 16, 2019 01:06
[2019-05-16] MEDS: NORCO, ANEXSIA 5/325MG TABLET (HYDROcodone/ACETAMINOPHEN) PO PRN (12:57)
[2019-05-16 14:00] VITALS: BP 128/68
[2019-05-16] MEDS ORDERED: LIDOCAINE 1% MDV 20ML VIAL As Ordered ONE (15:31)
--- NOTE | 2019-05-16 18:14 | CR ---
DATE OF CONSULTATION: 05/16/2019 CONSULTATION REPORT FOR: Hospitalist, Dr. Cate Blair REASON FOR CONSULTATION: This is regarding wound care for bilateral heel ulcers/pressure injuries and left lateral midfoot wound. An 88-year-old male hospitalized last week for presumed osteomyelitis involving worsening of a wound involving the left heel and left lateral midfoot. The patient had a history of a fractured left hip, was hospitalized, underwent orthopedic repair and then later transferred to a rehabilitation hospital. At that facility, the patient developed hospital-acquired pressure injuries involving both right and left heels. When he was discharged, he was referred to our clinic for treatment. No previous offloading had been accomplished nor debridement performed. These treatment modalities were then initiated and the patient stabilized. When he was seen last, he had significant gravitational dependent edema with cellulitis involving the left forefoot and worsening of the lateral midfoot and heel wounds. There was extensive wet necrotic tissue with exposed bone in both wounds. The right heel wound remained stable and has shown some improvement after debridements and appropriate dressing changes. When seen today on telemedicine, the patient has less lower extremity edema.. . The previous erythema is improved and there is less necrotic tissue involving the wound bases. The left lateral midfoot wound measures 2.3 cm x 2.2 cm with a wound depth of 0.3 cm. There were areas of granulation tissue present and no exposed bone noted. The peripheral aspect of the wound showed fibrin slough. Wound edges were open and the periwound showed minimal erythema with mild edema. The heel wound likewise showed some improvement after debridement prior to admission to the hospital. This measured 4.2 cm x 1.4 cm with a depth of 0.7 cm. There were areas of fibrin slough but no deep structures were seen. There were areas of granulation tissue now beginning to form. Drainage for both wounds was minimal, and serosanguineous. The right heel wound had stabilized and measured 1.3 cm x 1.2 cm with a depth of 0.2 cm. There was mild maceration involving the periwound with no deep structures appreciated. Wound bed shows areas of granulation tissue. TREATMENT AT THIS TIME: Bilateral compression wraps have been utilized to control edema and to prevent it from recurring. This should be continued. Bilateral heel float boots have been initiated to offload the heels and prevent further pressure on the wounds which is of paramount importance for treatment. The patient had a repeat arterial ultrasound as he has had recent bilateral angioplasties.Any concern regarding this should be discussed with the vascular surgery department. The patient may be out of bed for minimal periods of time during the day and physical therapy can be initiated. Dressing changes should utilize Hydrofera Blue, OptiLock and Kerlix dressings. This should be followed with two-layer compression wraps. Dressing changes on an every other day basis should continue. If the diagnosis of osteomyelitis has been made long-term antibiotic therapy at the discretion of infectious disease would be indicated. The patient can be followed up at the wound care center once he has been placed. LUCÍA
[2019-05-16] MEDS: WARFARIN SOD 2 MG TAB PO SCH (18:36)
[2019-05-16] MEDS: ACETAMINOPHEN TAB 650MG DOSE (2X325MG) PO PRN (19:17)
[2019-05-16] MEDS: ATORVASTATIN 20 MG TAB PO SCH (20:33)
[2019-05-16] MEDS: PANTOPRAZOLE 40MG TAB (PROTONIX) PO SCH (20:34)
[2019-05-16 22:00] VITALS: BP 124/68
[2019-05-17] MEDS: MEROPENEM INJ 1 GM in APPROPRIATE DILUENT 1 EA IV SCH ×3 (05:44→20:06)
[2019-05-17 06:00] VITALS: BP 122/60
[2019-05-17 06:03] LABS: INR 2.42; PROTHROMBIN TIME 26.2 SECONDS (11.8-14.0)
[2019-05-17] MEDS: LEVOTHYROXINE 50MCG TABLET (0.05MG) PO SCH (06:17)
[2019-05-17] MEDS: VANCOMYCIN HCL 1,000 MG, VIAL MATE ADAPTER 1 EACH in D5W 250 ML IV SCH (06:17)
[2019-05-17] MEDS: SODIUM CHLORIDE 0.9% INJ 10 ML SYR IV SCH ×2 (06:47→16:52)
[2019-05-17] MEDS: DOCUSATE SODIUM 100 MG CAP PO SCH ×2 (08:30→20:08)
[2019-05-17] MEDS: AMIODARONE 200 MG TAB (PACERONE) PO SCH (08:30)
[2019-05-17] MEDS: LORATADINE 10 MG TAB PO SCH (08:31)
[2019-05-17] MEDS: MULTIVITAMINS/MINERALS THERAP 1 TAB PO SCH (08:31)
[2019-05-17] MEDS: SPIRONOLACTONE 25 MG TAB PO SCH (08:32)
[2019-05-17] MEDS: METOPROLOL TART 12.5 MG PER 1/2 TAB PO SCH ×2 (08:33→20:09)
[2019-05-17 09:00] VITALS: BP 107/58
[2019-05-17] MEDS: SODIUM CHLORIDE 0.9% INJ 10 ML SYR IV PRN (13:57)
[2019-05-17 14:00] VITALS: BP 113/58
--- NOTE | 2019-05-17 15:26 | IPNPDOC ---
Subjective Date Seen The patient was seen on 05/17/19. Subjective Chief Complaint/HPI Does not offr any complaints this am. Had left shoulder pain and stiffness but that is better with a heating pad. Has PICC line on right. No fever r chills, no chest pain or SOb , no abdominal pain nausea or vomiting or diarrhea Objective Physical Examination General Exam: Positive: Alert, Cooperative, No Acute Distress Eye Exam: Positive: PERRLA, Conjunctiva & lids normal, EOMI; Negative: Sclera icteric ENT Exam: Positive: Atraumatic, Mucous membr. moist/pink, Pharynx Normal Neck Exam: Positive: Supple; Negative: JVD, thyromegaly Chest Exam: Positive: Clear to auscultation, Normal air movement Heart Exam: Positive: Rate Normal, Regular Rhythm, Normal S1, Normal S2; Negative: Murmurs, Rubs Abdomen Exam: Positive: Normal bowel sounds, Soft; Negative: Tenderness, Hepatospenomegaly Extremity Exam: Negative: Clubbing, Cyanosis, Edema Skin Exam: Positive: Breakdown (bilateral heel stage 4 pressure ulcers, on the left there is extension to the lateral side of the foot. 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 This is a removable brace utilized for foot drop and early ambulation, prescribed in [place] which has recently caused significant trauma to his left foot. When seen in the wound clinic on 05/11/2019, the patient's left foot had deteriorated significantly. The original heel wound had become necrotic with exposed bone and the patient developed a new black eschar involving the lateral mid foot. This was fluctuant and the dorsal aspect of the foot showed cellulitis and 4+ edema. 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 s/p sharp debridement at Wound Care clinic then sent to hospital fro IV antibiotics. Wound culture shows proteus and citrobacter Blood Culture negative till date Wound Care as per Dr. Barajas's recommendations offloading boots Arterial Duplex unremarkable for arterial stenosis continue meropenem. Bilateral heel pressure ulcers stage 4 acquired during rehab stay in [place] after hip fracture in Dec 2018 patient has been following at the wound clinic for this and was improving then his brace caused major trauma to the left foot. Peripheral arterial disease of both the lower extremities. 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 Plan/VTE VTE Prophylaxis Ordered?: Yes VS, I&O, 24H, Fishbone Vital Signs/I&O Vital Signs Date Time Temp Pulse Resp B/P (MAP) Pulse Ox O2 Delivery O2 Flow Rate FiO2 05/17/19 09:00 74 17 107/58 (74) 05/17/19 06:00 97.6 99 05/11/19 21:21 Room Air I&O- Last 24 Hours up to 6 AM 05/17/19 06:00 Intake Total 860 ml Output Total 240 ml Balance 620 ml Laboratory Data 24H LABS Laboratory Tests 2 05/16/19 18:22: Vancomycin Level Trough 14.3 05/17/19 05:35: Prothrombin Time 26.2H, Prothromb Time International Ratio 2.42 Microbiology Microbiology 05/11/19 Blood Culture - Final, Complete NO GROWTH AFTER 5 DAYS 05/11/19 Blood Culture - Final, Complete NO GROWTH AFTER 5 DAYS 05/12/19 MRSA Screen - Final, Complete 05/14/19 Wound Culture - Final, Complete Proteus Mirabilis Citrobacter Freundii PAOLA CARRERA MD May 17, 2019 15:26
--- NOTE | 2019-05-17 16:22 | REP ---
PICC line insertion under ultrasound guidance. The procedure was performed by YUKI Kevin, under the direct supervision of Dr. Haskins. The risks and benefits of the procedure were explained to the patient and informed consent was obtained the verbally and written. Directly prior to the start of the procedure, a formal timeout was completed in the procedure room. The right basilic vein was localized using ultrasound guidance. The skin was prepped and draped in the sterile fashion. 2 ml 1% lidocaine was used as a local anesthetic. Using ultrasound guidance the right basilic vein was cannulated and a 0.018 guidewire was inserted and advanced to the SVC using fluoroscopic guidance. The needle was removed and a 4.5 Thai dilator and peel-away sheath was inserted over the guidewire. A 4.5 Thai single lumen catheter was cut to the length of 43 cm. The dilator was removed and the catheter was inserted over the guide wire with the tip ending in the SVC. The peel-away sheath was removed and the catheter was flushed with heparinized saline as per hospital protocol. The catheter was affixed to the skin and a sterile dressing was applied. The patient tolerated the procedure well and there were no immediate complications. 0.4 minutes of fluoroscopy time was utilized for this procedure. Some fluoroscopic images are performed with last image hold technology. These images require no additional radiation. Reviewed by YUKI Buenrostro 05/17/2019 08:31 A Electronically Signed by Jaron Haskins MD 05/17/2019 04:14 P
[2019-05-17] MEDS: ACETAMINOPHEN TAB 650MG DOSE (2X325MG) PO PRN (16:52)
[2019-05-17] MEDS: WARFARIN SOD 2 MG TAB PO SCH (16:52)
[2019-05-17] MEDS: ATORVASTATIN 20 MG TAB PO SCH (20:07)
[2019-05-17] MEDS: PANTOPRAZOLE 40MG TAB (PROTONIX) PO SCH (20:08)
[2019-05-17 22:00] VITALS: BP 134/66
[2019-05-18] MEDS: LEVOTHYROXINE 50MCG TABLET (0.05MG) PO SCH (05:44)
[2019-05-18] MEDS: MEROPENEM INJ 1 GM in APPROPRIATE DILUENT 1 EA IV SCH ×3 (05:45→21:35)
[2019-05-18] MEDS: SODIUM CHLORIDE 0.9% INJ 10 ML SYR IV SCH ×2 (05:45→17:32)
[2019-05-18 06:00] VITALS: BP 130/60
[2019-05-18 06:19] LABS: INR 2.61; PROTHROMBIN TIME 27.8 SECONDS (11.8-14.0)
[2019-05-18 07:12] LABS: BASO # 0.1 10^3/uL (0.0-0.2); BASO % 0.6 % (0.0-1.0); EOS # 0.5 10^3/uL (0.0-0.50); EOS % 5.3 % (0.0-3.0); HEMATOCRIT 35.2 % (42.0-52.0); HEMOGLOBIN 11.4 g/dl (13.5-17.5); LYMPH # 1.9 10^3/uL (1.5-4.5); LYMPH % 19.7 % (24.0-44.0); MEAN CORPUSCULAR HEMOGLOBIN 28.7 pg (27.0-33.0); MEAN CORPUSCULAR HGB CONC 32.4 g/dl (32.0-36.5); MEAN CORPUSCULAR VOLUME 88.7 fl (80.0-96.0); MONO # 0.9 10^3/uL (0.0-0.8); MONO % 9.2 % (0.0-5.0); NEUTROPHILS # 6.2 10^3/uL (1.8-7.7); NEUTROPHILS % 64.9 % (36.0-66.0); PLATELET COUNT, AUTOMATED 280 10^3/uL (150-450); RED BLOOD COUNT 3.97 10^6/uL (4.30-6.10); WHITE BLOOD COUNT 9.6 10^3/uL (4.0-10.0)
[2019-05-18 07:37] LABS: BLOOD UREA NITROGEN 21 MG/DL (7-18); CALCIUM LEVEL 8.5 MG/DL (8.8-10.2); CARBON DIOXIDE LEVEL 27 MEQ/L (21-32); CHLORIDE LEVEL 103 MEQ/L (98-107); GLOMERULAR FILTRATION RATE > 60.0 (>35); GLUCOSE, FASTING 82 MG/DL (70-100); POTASSIUM SERUM 4.4 MEQ/L (3.5-5.1); SODIUM LEVEL 138 MEQ/L (136-145)
[2019-05-18] MEDS: LORATADINE 10 MG TAB PO SCH (08:45)
[2019-05-18] MEDS: DOCUSATE SODIUM 100 MG CAP PO SCH ×2 (08:45→21:33)
[2019-05-18] MEDS: SPIRONOLACTONE 25 MG TAB PO SCH (08:45)
[2019-05-18] MEDS: AMIODARONE 200 MG TAB (PACERONE) PO SCH (08:46)
[2019-05-18] MEDS: MULTIVITAMINS/MINERALS THERAP 1 TAB PO SCH (08:46)
[2019-05-18] MEDS: METOPROLOL TART 12.5 MG PER 1/2 TAB PO SCH ×2 (09:00→21:00)
--- NOTE | 2019-05-18 11:24 | IPNPDOC ---
Subjective Date Seen The patient was seen on 05/18/19. Subjective Chief Complaint/HPI No complaints this am. Except for left foot pain Objective Physical Examination General Exam: Positive: Alert, Cooperative, No Acute Distress Eye Exam: Positive: PERRLA, Conjunctiva & lids normal, EOMI; Negative: Sclera icteric ENT Exam: Positive: Atraumatic, Mucous membr. moist/pink, Pharynx Normal Neck Exam: Positive: Supple; Negative: JVD, thyromegaly Chest Exam: Positive: Clear to auscultation, Normal air movement Heart Exam: Positive: Rate Normal, Regular Rhythm, Normal S1, Normal S2; Negative: Murmurs, Rubs Abdomen Exam: Positive: Normal bowel sounds, Soft; Negative: Tenderness, Hepatospenomegaly Extremity Exam: Negative: Clubbing, Cyanosis, Edema Skin Exam: Positive: Breakdown (bilateral heel stage 4 pressure ulcers, on the left there is extension to the lateral side of the foot. 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 This is a removable brace utilized for foot drop and early ambulation, prescribed in [place] which has recently caused significant trauma to his left foot. When seen in the wound clinic on 05/11/2019, the patient's left foot had deteriorated significantly. The original heel wound had become necrotic with exposed bone and the patient developed a new black eschar involving the lateral mid foot. This was fluctuant and the dorsal aspect of the foot showed cellulitis and 4+ edema. 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 s/p sharp debridement at Wound Care clinic then sent to hospital fro IV antibiotics. Wound culture shows proteus and citrobacter Blood Culture negative till date Wound Care as per Dr. Barajas's recommendations offloading boots Arterial Duplex unremarkable for arterial stenosis continue meropenem. Bilateral heel pressure ulcers stage 4 acquired during rehab stay in [place] after hip fracture in Dec 2018 patient has been following at the wound clinic for this and was improving then his brace caused major trauma to the left foot. Peripheral arterial disease of both the lower extremities. 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 Plan/VTE VTE Prophylaxis Ordered?: Yes VS, I&O, 24H, Fishbone Vital Signs/I&O Vital Signs Date Time Temp Pulse Resp B/P (MAP) Pulse Ox O2 Delivery O2 Flow Rate FiO2 05/18/19 06:00 98.2 78 17 130/60 (83) 98 I&O- Last 24 Hours up to 6 AM 05/18/19 06:00 Intake Total 1090 ml Balance 1090 ml Laboratory Data 24H LABS Laboratory Tests 2 05/18/19 05:42: Prothrombin Time 27.8H, Prothromb Time International Ratio 2.61 05/18/19 06:51: Immature Granulocyte % (Auto) 0.3, White Blood Count 9.6, Red Blood Count 3.97L, Hemoglobin 11.4L, Hematocrit 35.2L, Mean Corpuscular Volume 88.7, Mean Corpuscular Hemoglobin 28.7, Mean Corpuscular Hemoglobin Concent 32.4, Red Cell Distribution Width 17.7H, Platelet Count 280, Neutrophils (%) (Auto) 64.9, Lymphocytes (%) (Auto) 19.7L, Monocytes (%) (Auto) 9.2H, Eosinophils (%) (Auto) 5.3H, Basophils (%) (Auto) 0.6, Neutrophils # (Auto) 6.2, Lymphocytes # (Auto) 1.9, Monocytes # (Auto) 0.9H, Eosinophils # (Auto) 0.5, Basophils # (Auto) 0.1, Nucleated Red Blood Cells % (auto) 0.0, Anion Gap 8, Glomerular Filtration Rate > 60.0, Blood Urea Nitrogen 21H, Creatinine 0.90, Sodium Level 138, Potassium Level 4.4, Chloride Level 103, Carbon Dioxide Level 27, Calcium Level 8.5L CBC/BMP Laboratory Tests 05/18/19 06:51 Red Blood Count 3.97 L, Mean Corpuscular Volume 88.7, Mean Corpuscular Hemoglobin 28.7, Mean Corpuscular Hemoglobin Concent 32.4, Red Cell Distribution Width 17.7 H, Neutrophils (%) (Auto) 64.9, Lymphocytes (%) (Auto) 19.7 L, Monocytes (%) (Auto) 9.2 H, Eosinophils (%) (Auto) 5.3 H, Basophils (%) (Auto) 0.6, Neutrophils # (Auto) 6.2, Lymphocytes # (Auto) 1.9, Monocytes # (Auto) 0.9 H, Eosinophils # (Auto) 0.5, Basophils # (Auto) 0.1, Calcium Level 8.5 L Microbiology Microbiology 05/11/19 Blood Culture - Final, Complete NO GROWTH AFTER 5 DAYS 05/11/19 Blood Culture - Final, Complete NO GROWTH AFTER 5 DAYS 05/12/19 MRSA Screen - Final, Complete 05/14/19 Wound Culture - Final, Complete Proteus Mirabilis Citrobacter Freundii PAOLA CARRERA MD May 18, 2019 08:29
[2019-05-18 14:00] VITALS: BP 104/56
[2019-05-18] MEDS: WARFARIN SOD 2 MG TAB PO SCH (17:32)
[2019-05-18] MEDS: PANTOPRAZOLE 40MG TAB (PROTONIX) PO SCH (21:33)
[2019-05-18] MEDS: ATORVASTATIN 20 MG TAB PO SCH (21:33)
[2019-05-18 22:00] VITALS: BP 114/60
[2019-05-18] MEDS: SODIUM CHLORIDE 0.9% INJ 10 ML SYR IV PRN (23:44)
[2019-05-19] MEDS: MEROPENEM INJ 1 GM in APPROPRIATE DILUENT 1 EA IV SCH ×2 (04:34→13:57)
[2019-05-19 05:56] LABS: BASO # 0.1 10^3/uL (0.0-0.2); BASO % 0.7 % (0.0-1.0); EOS # 0.6 10^3/uL (0.0-0.50); EOS % 5.2 % (0.0-3.0); HEMATOCRIT 35.4 % (42.0-52.0); HEMOGLOBIN 11.5 g/dl (13.5-17.5); LYMPH # 2.1 10^3/uL (1.5-4.5); LYMPH % 19.7 % (24.0-44.0); MEAN CORPUSCULAR HGB CONC 32.5 g/dl (32.0-36.5); MEAN CORPUSCULAR VOLUME 86.1 fl (80.0-96.0); MONO # 0.9 10^3/uL (0.0-0.8); MONO % 8.9 % (0.0-5.0); NEUTROPHILS # 6.8 10^3/uL (1.8-7.7); NEUTROPHILS % 64.9 % (36.0-66.0); PLATELET COUNT, AUTOMATED 316 10^3/uL (150-450); RED BLOOD COUNT 4.11 10^6/uL (4.30-6.10); WHITE BLOOD COUNT 10.5 10^3/uL (4.0-10.0)
[2019-05-19 06:03] VITALS: BP 126/62
[2019-05-19] MEDS: LEVOTHYROXINE 50MCG TABLET (0.05MG) PO SCH (06:04)
[2019-05-19] MEDS: SODIUM CHLORIDE 0.9% INJ 10 ML SYR IV SCH ×2 (06:05→16:46)
[2019-05-19 06:14] LABS: BLOOD UREA NITROGEN 27 MG/DL (7-18); CALCIUM LEVEL 8.8 MG/DL (8.8-10.2); CARBON DIOXIDE LEVEL 25 MEQ/L (21-32); CHLORIDE LEVEL 103 MEQ/L (98-107); CREATININE FOR GFR 0.96 MG/DL (0.70-1.30); GLOMERULAR FILTRATION RATE > 60.0 (>35); GLUCOSE, FASTING 88 MG/DL (70-100); POTASSIUM SERUM 4.1 MEQ/L (3.5-5.1); SODIUM LEVEL 136 MEQ/L (136-145)
[2019-05-19] MEDS: MULTIVITAMINS/MINERALS THERAP 1 TAB PO SCH (08:46)
[2019-05-19] MEDS: DOCUSATE SODIUM 100 MG CAP PO SCH ×2 (08:46→20:10)
[2019-05-19] MEDS: AMIODARONE 200 MG TAB (PACERONE) PO SCH (08:46)
[2019-05-19] MEDS: LORATADINE 10 MG TAB PO SCH (08:46)
[2019-05-19] MEDS: SPIRONOLACTONE 25 MG TAB PO SCH (08:47)
[2019-05-19] MEDS: METOPROLOL TART 12.5 MG PER 1/2 TAB PO SCH ×2 (08:47→20:10)
[2019-05-19 14:00] VITALS: BP_SYST 57
[2019-05-19] MEDS: ACETAMINOPHEN TAB 650MG DOSE (2X325MG) PO PRN (16:45)
[2019-05-19] MEDS ORDERED: diphenhydrAMINE INJ 50MG/ML VIAL (J1200) IV ONE (16:45)
[2019-05-19] MEDS: WARFARIN SOD 2 MG TAB PO SCH (16:46)
[2019-05-19] MEDS: cefTRIAXone SOD 2 GM in D5W MINI-BAG PLUS 50 ML IV SCH (17:21)
--- NOTE | 2019-05-19 17:57 | CR ---
DATE OF CONSULTATION: 05/19/2019 REASON FOR CONSULTATION: Heel ulceration left foot. Kimani Kwok is a pleasant, 88-year-old male who is admitted to the hospital due to worsening ulcerations on his left side. He has had two heel ulcerations on both sides, which he has been undergoing treatment at the wound care center with Dr. Barajas. At his most recent visit, the wound was noted to have worsened. He had extensive debridement at this time and was sent to the hospital for admission for antibiotics and close monitoring. During the hospital stay, it appears the wound has improved. He is being treated with intravenous (IV) antibiotics. Consultation was placed for me to determine if bone biopsy or operative debridement was necessary. PAST MEDICAL HISTORY: Significant for: 1. Coronary artery disease. 2. Myocardial infarction. 3. Peripheral arterial disease. 4. Chronic systolic heart failure. 5. Ischemic cardiomyopathy with implantable defibrillator. 6. History of cerebrovascular accident (CVA). 7. Ventricular fibrillation. 8. Atrial fibrillation. 9. Hypothyroidism. 10. Obstructive uropathy. 11. Hypercholesterolemia. PAST SURGICAL HISTORY: Includes: 1. Pacemaker placement. 2. Transurethral resection of the prostate (TURP). 3. Bilateral angioplasty. 4. Tonsillectomy. 5. Left hip reconstructive surgery. 6. Hernia repair. SOCIAL HISTORY: Negative for smoking or alcohol. REVIEW OF SYSTEMS: Negative for nausea, vomiting, fever or chills. VITAL SIGNS: Are reviewed. He has been afebrile since admission. LABORATORIES: Are reviewed. White blood cell count today is 10.5. The most recent erythrocyte sedimentation rate on 05/11/2019 was 80. CRP yesterday was 4.7, which was down from 15.2 on admission. Cultures grew Proteus mirabilis and Citrobacter freundii. Bilateral arterial ultrasounds show mild atheromatous changes without focal narrowing. LOWER EXTREMITY EXAMINATION: The right heel wound is inspected with fully granular base. No signs of surrounding erythema. There are ulcerations on the left foot at the plantar heel and the lateral midfoot. Midfoot is fully granular. There is no necrotic tissue. There is some necrotic tissue and fibrous tissue on the plantar heel wound. No purulent drainage or malodor. ASSESSMENT: This is an 88-year-old male with pressure ulceration cellulitis, peripheral vascular disease (PVD). PLAN: At this time, no need for bone biopsy is present. Patient should be treated with presumptive superficial osteomyelitis. There is probe to bone to the heel wound and there was exposed bone at the time of the debridement, as well as an erythrocyte sedimentation rate greater than 70 which, again, is suggestive of bone infection in the presence of a penetrating ulcer. Infectious disease has been consulted with suggestion of 21 days treatment, which appears appropriate and he will have followup labs to confirm proven in his infection markers. Bedside wound debridement was performed to the left heel. After time out, using a #15 blade, loose necrotic tissue was debrided from the plantar heel wound. Continue wound care as recommended by Dr. Barajas. He will have followup with Dr. Barajas at the wound care center . Thank you for this consultation.
[2019-05-19] MEDS: SODIUM CHLORIDE 0.9% INJ 10 ML SYR IV PRN (19:01)
[2019-05-19] MEDS: PANTOPRAZOLE 40MG TAB (PROTONIX) PO SCH (20:11)
[2019-05-19] MEDS: ATORVASTATIN 20 MG TAB PO SCH (20:11)
--- NOTE | 2019-05-19 21:28 | IPNPDOC ---
Subjective Date Seen The patient was seen on 05/19/19. Subjective Chief Complaint/HPI No complaints this morning. PT recommended dc home with only 24 x 7 care. pateint's daughter have spoken with [facility] and they have 24 x 7 care at home. No fever or chills, no chest pain or sob. Objective Physical Examination General Exam: Positive: Alert, Cooperative, No Acute Distress Eye Exam: Positive: PERRLA, Conjunctiva & lids normal, EOMI; Negative: Sclera icteric ENT Exam: Positive: Atraumatic, Mucous membr. moist/pink, Pharynx Normal Neck Exam: Positive: Supple; Negative: JVD, thyromegaly Chest Exam: Positive: Clear to auscultation, Normal air movement Heart Exam: Positive: Rate Normal, Regular Rhythm, Normal S1, Normal S2; Negative: Murmurs, Rubs Abdomen Exam: Positive: Normal bowel sounds, Soft; Negative: Tenderness, Hepatospenomegaly Extremity Exam: Negative: Clubbing, Cyanosis, Edema Skin Exam: Positive: Breakdown (The right heel wound has a fully granular base with no erythema, There are ulcerations on the left heel and lateral left midfoot. The mid foot is granular. 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 This is a removable brace utilized for foot drop and early ambulation, prescribed in [place] which has recently caused significant t rauma to his left foot. When seen in the wound clinic on 05/11/2019, the patient's left foot had deteriorated significantly. The original heel wound had become necrotic with exposed bone and the patient developed a new black eschar involving the lateral mid foot. This was fluctuant and the dorsal aspect of the foot showed cellulitis and 4+ edema. 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 As per podiatry there is probe to bone to the heel wound and there was exposed bone at the time of the debridement, as well as an erythrocyte sedimentation rate greater than 70 which, again, is suggestive of bone infection in the presence of a penetrating ulcer. s/p sharp debridement at Wound Care clinic then sent to hospital fro IV antibiotics. Wound culture shows proteus and citrobacter Blood Culture negative till date Wound Care as per Dr. Barajas's recommendations offloading boots Arterial Duplex unremarkable for arterial stenosis Seen by Podiatry had debriding done on the left heel again. No bone biopsy recommended at present. Will down grade to ceftriaxone. have set up for home antibiotics for 3 weeks. A ntibiotics started on 05/11/19 will give total or 4 weeks of antibiotics. No ID was available this week so will give an outpatient referral for follow up. Bilateral heel pressure ulcers stage 4 acquired during rehab stay in [place] after hip fracture in Dec 2018 patient has been following at the wound clinic for this and was improving then his brace caused major trauma to the left foot. Peripheral arterial disease of both the lower extremities. 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 Plan/VTE VTE Prophylaxis Ordered?: Yes VS, I&O, 24H, Jamirbone Vital Signs/I&O Vital Signs Date Time Temp Pulse Resp B/P (MAP) Pulse Ox O2 Delivery O2 Flow Rate FiO2 05/19/19 20:10 71 107/55 05/19/19 14:00 97.0 22 96 I&O- Last 24 Hours up to 6 AM 05/19/19 06:00 Intake Total 660 ml Output Total 0 ml Balance 660 ml Laboratory Data 24H LABS Laboratory Tests 2 05/19/19 05:32: Immature Granulocyte % (Auto) 0.6, White Blood Count 10.5H, Red Blood Count 4.11L, Hemoglobin 11.5L, Hematocrit 35.4L, Mean Corpuscular Volume 86.1, Mean Corpuscular Hemoglobin 28.0, Mean Corpuscular Hemoglobin Concent 32.5, Red Cell Distribution Width 17.8H, Platelet Count 316, Neutrophils (%) (Auto) 64.9, Lymphocytes (%) (Auto) 19.7L, Monocytes (%) (Auto) 8.9H, Eosinophils (%) (Auto) 5.2H, Basophils (%) (Auto) 0.7, Neutrophils # (Auto) 6.8, Lymphocytes # (Auto) 2.1, Monocytes # (Auto) 0.9H, Eosinophils # (Auto) 0.6H, Basophils # (Auto) 0.1, Nucleated Red Blood Cells % (auto) 0.0, Anion Gap 8, Glomerular Filtration Rate > 60.0, Blood Urea Nitrogen 27H, Creatinine 0.96, Sodium Level 136, Potassium Level 4.1, Chloride Level 103, Carbon Dioxide Level 25, Calcium Level 8.8 CBC/BMP Laboratory Tests 05/19/19 05:32 Red Blood Count 4.11 L, Mean Corpuscular Volume 86.1, Mean Corpuscular Hemoglobin 28.0, Mean Corpuscular Hemoglobin Concent 32.5, Red Cell Distribution Width 17.8 H, Neutrophils (%) (Auto) 64.9, Lymphocytes (%) (Auto) 19.7 L, Monocytes (%) (Auto) 8.9 H, Eosinophils (%) (Auto) 5.2 H, Basophils (%) (Auto) 0.7, Neutrophils # (Auto) 6.8, Lymphocytes # (Auto) 2.1, Monocytes # (Auto) 0.9 H, Eosinophils # (Auto) 0.6 H, Basophils # (Auto) 0.1, Calcium Level 8.8 Microbiology Microbiology 05/11/19 Blood Culture - Final, Complete NO GROWTH AFTER 5 DAYS 05/11/19 Blood Culture - Final, Complete NO GROWTH AFTER 5 DAYS 05/12/19 MRSA Screen - Final, Complete 05/14/19 Wound Culture - Final, Complete Proteus Mirabilis Citrobacter Freundii PAOLA CARRERA MD May 19, 2019 21:27
[2019-05-19 22:00] VITALS: BP 107/55
[2019-05-20] MEDS: LEVOTHYROXINE 50MCG TABLET (0.05MG) PO SCH (05:50)
[2019-05-20] MEDS: SODIUM CHLORIDE 0.9% INJ 10 ML SYR IV SCH ×2 (05:50→14:08)
[2019-05-20 06:00] VITALS: BP 110/56
[2019-05-20 06:04] LABS: BASO # 0.1 10^3/uL (0.0-0.2); BASO % 0.5 % (0.0-1.0); EOS # 0.5 10^3/uL (0.0-0.50); EOS % 4.8 % (0.0-3.0); HEMATOCRIT 36.3 % (42.0-52.0); HEMOGLOBIN 11.8 g/dl (13.5-17.5); LYMPH # 2.2 10^3/uL (1.5-4.5); LYMPH % 19.6 % (24.0-44.0); MEAN CORPUSCULAR HEMOGLOBIN 28.7 pg (27.0-33.0); MEAN CORPUSCULAR HGB CONC 32.5 g/dl (32.0-36.5); MEAN CORPUSCULAR VOLUME 88.3 fl (80.0-96.0); MONO # 1.1 10^3/uL (0.0-0.8); MONO % 9.7 % (0.0-5.0); NEUTROPHILS # 7.2 10^3/uL (1.8-7.7); PLATELET COUNT, AUTOMATED 306 10^3/uL (150-450); RED BLOOD COUNT 4.11 10^6/uL (4.30-6.10); WHITE BLOOD COUNT 11.1 10^3/uL (4.0-10.0)
[2019-05-20 06:36] LABS: BLOOD UREA NITROGEN 29 MG/DL (7-18); CALCIUM LEVEL 8.1 MG/DL (8.8-10.2); CARBON DIOXIDE LEVEL 29 MEQ/L (21-32); CHLORIDE LEVEL 101 MEQ/L (98-107); CREATININE FOR GFR 0.85 MG/DL (0.70-1.30); GLOMERULAR FILTRATION RATE > 60.0 (>35); GLUCOSE, FASTING 89 MG/DL (70-100); POTASSIUM SERUM 4.3 MEQ/L (3.5-5.1); SODIUM LEVEL 136 MEQ/L (136-145)
[2019-05-20] MEDS: DOCUSATE SODIUM 100 MG CAP PO SCH (08:19)
[2019-05-20] MEDS: LORATADINE 10 MG TAB PO SCH (08:19)
[2019-05-20] MEDS: MULTIVITAMINS/MINERALS THERAP 1 TAB PO SCH (08:19)
[2019-05-20 08:20] VITALS: BP 119/66
[2019-05-20] MEDS: METOPROLOL TART 12.5 MG PER 1/2 TAB PO SCH (08:20)
[2019-05-20] MEDS: SPIRONOLACTONE 25 MG TAB PO SCH (08:20)
[2019-05-20 14:00] VITALS: BP 115/64
[2019-05-20] MEDS: cefTRIAXone SOD 2 GM in D5W MINI-BAG PLUS 50 ML IV SCH (14:07)
--- NOTE | 2019-05-21 16:32 | DS.PDOC ---
Discharge Summary General Date of Admission May 11, 2019 at 19:48 Date of Discharge 05/20/19 Discharge Summary PROCEDURES PERFORMED DURING STAY: Bedside debridement of the left heel by Podiatry ADMITTING DIAGNOSES: Cellulitis and osteomyelitis of left foot. 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 HISTORY OF PRESENT ILLNESS: please see history and physical HOSPITAL COURSE: Patient is an 88-year-old male, presenting to the emergency ro om after being referred by seo specialist on account of nonhealing left lower extremity gangrenous ulcer. Patient has a medical history significant for peripheral arterial disease with recent angioplasty to bilateral lower extremities. Today, he went to see the seo specialist and had extensive debridement of that left foot and was sent to the emergency room for antibiotic therapy, wound offloading, and wound cultures. History was provided by patient's family. This year in December, patient had a hip fracture for which he had ORIF in [place] and discharged to a rehab facility. In the rehabilitation facility he developed non healing heel ulcers to bilateral lower extremities. About a month ago vascular surgeon completed angioplasty of right lower extremity with improvement of blood flow and some healing. There was also angioplasty of the left lower extremity, however, after multiple debridement therapy wound has remained nonhealing. Usually patient has wound evaluation and treatment weekly. 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 This is a removable brace utilized for foot drop and early ambulation, prescribed in [place] which has recently caused significant trauma to his left foot. When seen in the wound clinic on 05/11/2019, the patient's left foot had deteriorated significantly. The original heel wound had become necrotic with exposed bone and the patient developed a new black eschar involving the lateral mid foot. This was fluctuant and the dorsal aspect of the foot showed cellulitis and 4+ edema. 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 As per podiatry there is probe to bone to the heel wound and there was exposed bone at the time of the debridement, as well as an erythrocyte sedimentation rate greater than 70 which, again, is suggestive of bone infection in the presence of a penetrating ulcer. s/p sharp debridement at Wound Care clinic then sent to hospital fro IV antibiotics. Wound culture shows proteus and Citrobacter Blood Culture negative till date Wound Care as per Dr. Barajas's recommendations Blue heel float boots Arterial Duplex unremarkable for arterial stenosis Seen by Podiatry had debriding done on the left heel again. No bone biopsy recommended at present. Will down grade to ceftriaxone. [place]ie[place] with no issues. Have set up for home antibiotics for 3 weeks. Antibiotics started on 05/11/19 will give total or 4 weeks of antibiotics till 06/10/19. No ID was available this week so will give an outpatient referral for follow up. Bilateral heel pressure ulcers stage 4 acquired during rehab stay in [place] after hip fracture in Dec 2018 patient has been following at the wound clinic for this and was improving then his brace caused major trauma to the left foot. Peripheral arterial disease of both the lower extremities. 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 DISCHARGE MEDICATIONS: Please see below. ALLERGIES: Please see below. PHYSICAL EXAMINATION ON DISCHARGE: VITAL SIGNS: Please see below. General Exam: Positive: Alert, Cooperative, No Acute Distress Eye Exam: Positive: PERRLA, Conjunctiva & lids normal, EOMI; Negative: Sclera icteric ENT Exam: Positive: Atraumatic, Mucous membr. moist/pink, Pharynx Normal Neck Exam: Positive: Supple; Negative: JVD, thyromegaly Chest Exam: Positive: Clear to auscultation, Normal air movement Heart Exam: Positive: Rate Normal, Regular Rhythm, Normal S1, Normal S2; Negative: Murmurs, Rubs Abdomen Exam: Positive: Normal bowel sounds, Soft; Negative: Tenderness, Hepatosplenomegaly Extremity Exam: Negative: Clubbing, Cyanosis, Edema Skin Exam: Positive: Breakdown (The right heel wound has a fully granular base with no erythema. There are ulcerations on the left heel and lateral left midfoot. The mid foot is granular. There is some necrotic tissue and fibrous tissue at the planter heel wound, No discharge or bad odor.), Other skin issue LABORATORY DATA: Please see below. ACTIVITY: [As tolerated]. DIET: 2 gm sodium with 1.5 cc fluid restriction DISPOSITION: 01 Home, Self-Care. DISCHARGE INSTRUCTIONS: Follow up with Dr Barajas as per outpatient appointment Referral to Dr Devries in 7 days. Follow up PMD in 2 weeks. DISCHARGE CONDITION: [Stable]. TIME SPENT ON DISCHARGE: 40 minutes. Vital Signs/I&Os Vital Signs Date Time Temp Pulse Resp B/P (MAP) Pulse Ox O2 Delivery O2 Flow Rate FiO2 05/20/19 14:00 97.1 80 24 115/64 (81) 94 I&O- Last 24 Hours up to 6 AM 05/21/19 06:00 Intake Total 236 ml Output Total 0 ml Balance 236 ml Microbiology Microbiology 05/11/19 Blood Culture - Final, Complete NO GROWTH AFTER 5 DAYS 05/11/19 Blood Culture - Final, Complete NO GROWTH AFTER 5 DAYS 05/12/19 MRSA Screen - Final, Complete 05/14/19 Wound Culture - Final, Complete Proteus Mirabilis Citrobacter Freundii Discharge Medications Scheduled Amiodarone HCl (Amiodarone HCl) 200 Mg Tab, 200 MG PO 5XW, (Reported) mon, tu, wed, , fri Atorvastatin Calcium (Atorvastatin Calcium) 80 Mg Tab, 80 MG PO QHS, (Reported) Docusate Sodium (Colace) 100 Mg Cap, 100 MG PO BID, (Reported) Levothyroxine Sodium (Synthroid) 50 Mcg Tab, 50 MCG PO DAILY, (Reported) Loratadine (Loratadine) 10 Mg Tab, 10 MG PO DAILY, (Reported) Metoprolol Tartrate (Metoprolol Tartrate) 25 Mg Tab, 12.5 MG PO BID, (Reported) Multivitamins (Thera M Plus Tablet) 1 Tab Tab, 1 TAB PO DAILY, (Reported) Pantoprazole Sodium (Pantoprazole Sodium) 40 Mg Tab, 40 MG PO QPM, (Reported) Spironolactone (Spironolactone) 25 Mg Tab, 37.5 MG PO DAILY, (Reported) Warfarin Sodium (Warfarin Sodium) 1 Mg Tablet, 2 MG PO QPM, (Reported) REDRAW INR TUES Scheduled PRN Acetaminophen (Acetaminophen) 500 Mg Tablet, 1,000 MG PO Q4HP PRN for PAIN, (Reported) Nitroglycerin (Nitrostat) 0.4 Mg Subl, 0.4 MG SL NITRO PRN for CHEST PAIN, (Reported) Polyethylene Glycol 3350 (Miralax) 119 Gm Powder, 17 GM PO PRN PRN for CONSTIPATION, (Reported) dilute in 8 ounces of water or juice Allergies Coded Allergies: Cephalosporins (Verified Allergy, Intermediate, rash, 03/06/19) clarithromycin (Verified Allergy, Intermediate, rash, 03/06/19) latex (Verified Adverse Reaction, Unknown, "sensitive to", 03/26/19) PAOLA CARRERA MD May 21, 2019 16:32
== END 2019-05-20 15:50 | disposition home health service (06) | DRG 539 ==
LOC: M ED 17:03 → M ED INP 19:48 → M MSPAV 21:27
PROVIDERS: ADMIT Internal Medicine; ATTEND Internal Medicine Nephrology
PROC: 02HV33Z Insertion of Infusion Device into Superior Vena Cava, Percutaneous Approach (ICD-10-PCS; 2019-05-16)
PROC: 0HDNXZZ Extraction of Left Foot Skin, External Approach (ICD-10-PCS; principal; 2019-05-19)
DX: M86.172 Other acute osteomyelitis, left ankle and foot (principal); L89.624 Pressure ulcer of left heel, stage 4; I50.22 Chronic systolic (congestive) heart failure; L03.116 Cellulitis of left lower limb; I70.362 Atherosclerosis of unspecified type of bypass graft(s) of the extremities with gangrene, left leg; L97.419 Non-pressure chronic ulcer of right heel and midfoot with unspecified severity; L97.424 Non-pressure chronic ulcer of left heel and midfoot with necrosis of bone; I70.335 Atherosclerosis of unspecified type of bypass graft(s) of the right leg with ulceration of other part of foot; I25.10 Atherosclerotic heart disease of native coronary artery without angina pectoris; I25.2 Old myocardial infarction; I25.5 Ischemic cardiomyopathy; I48.0 Paroxysmal atrial fibrillation; E03.9 Hypothyroidism, unspecified; E78.00 Pure hypercholesterolemia, unspecified; Z95.810 Presence of automatic (implantable) cardiac defibrillator; Z98.62 Peripheral vascular angioplasty status; Z79.01 Long term (current) use of anticoagulants; Z79.899 Other long term (current) drug therapy; Z88.1 Allergy status to other antibiotic agents; Z91.040 Latex allergy status

== ENCOUNTER → 2019-07-14 | Outpatient (CLI) | payer MEDICARE, OTHER ==
[~2019-07-14] MED LIST changes: +ACET-683 PO; -MELA5TAB17 PO; +MELA5TAB31 PO; +MIRA3350 PO
--- NOTE | 2019-07-14 15:24 | REP ---
Bilateral lower extremity arterial Doppler ultrasound: History: Bilateral wounds in the feet. Findings: Ankle brachial indices could not be obtained due to noncompressible vessels. Moderate atherosclerotic plaquing is seen bilaterally. No focal stenosis is identified. Triphasic and biphasic waveforms are noted throughout the lower extremity arteries except in the left distal posterior tibial and distal anterior tibial arteries were monophasic waveforms are observed. Right lower extremity arterial Doppler velocity chart: CF A 83 cm/S Profunda 85 Proximal SFA 92 Mid SFA 81 Distal SFA 76 Popliteal 48 Proximal AT A 63 Tibioperoneal trunk 65 Proximal CAREER SERVICES COORDINATOR 91 Distal CAREER SERVICES COORDINATOR 57 Distal AT A 64 Left lower extremity arterial Doppler velocity chart: CF A 78 cm/S Profunda 66 Proximal SFA 109 Mid SFA 81 Distal SFA 81 Popliteal 83 Proximal AT A 62 Tibioperoneal trunk 73 Proximal CAREER SERVICES COORDINATOR 93 Distal CAREER SERVICES COORDINATOR 177 Distal AT A 111 Electronically Signed by Jordan Franklin MD 07/14/2019 03:17 P
== END ==
LOC: M RAD 12:18
PROVIDERS: ATTEND Surgery Vascular Surgery
DX: I70.244 Atherosclerosis of native arteries of left leg with ulceration of heel and midfoot (principal); I70.234 Atherosclerosis of native arteries of right leg with ulceration of heel and midfoot

== ENCOUNTER → 2020-02-05 | Outpatient (CLI) | payer MEDICARE, OTHER ==
--- NOTE | 2020-02-05 12:52 | REP ---
Clinical: Symptoms related to atherosclerotic disease and intermittent claudication. Comparison: 07/14/2019 Technique: Real time haskins scale and color Doppler evaluation of the bilateral lower extremity arterial vasculature using linear high frequency transducer. Findings: Haskins scale and color images demonstrate moderate amounts of atheromatous plaquing without occlusion or focal stenosis identified. Doppler interrogation demonstrates primarily biphasic arterial wave forms and essentially normal velocities bilaterally. Peak systolic velocities (cm/sec) RIGHT LEFT Common femoral artery 170.1 134.1 Profunda femoris 117.9 100.9 SFA (proximal) 133 137 SFA (mid) 99 142 SFA (distal) 72 117.1 Popliteal artery 60 8.5 91.1 GIAN (prox.) 102.8 62.0 Tibioperoneal trunk 92.2 78.2 LAB ASST (prox.) 85.5 82.1 LAB ASST (distal) 62.1 54.1 GIAN (distal) 65.2 52.4 Impression: Moderate bilateral atheromatous changes without focal occlusion or stenosis. Electronically Signed by Marck Villaseñor MD 02/05/2020 12:43 P
== END ==
LOC: M RAD 11:08
PROVIDERS: ATTEND Surgery Vascular Surgery
DX: I70.234 Atherosclerosis of native arteries of right leg with ulceration of heel and midfoot (principal); I70.244 Atherosclerosis of native arteries of left leg with ulceration of heel and midfoot

== ENCOUNTER → 2020-10-21 | Outpatient (CLI) | payer MEDICARE, OTHER ==
[~2020-10-21] MED LIST changes: -AMIO200T PO; +AMIO200T3 PO; -MELA5TAB31 PO; +MELA5TAB36 PO; +PANT40TA29 PO; -PANT40TA3 PO
--- NOTE | 2020-10-21 15:55 | REP ---
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 TECHNIQUE: Real time haskins scale and Duplex Doppler evaluation of the bilateral lower extremity arterial vasculature using linear high frequency transducer. FINDINGS: Haskins scale and duplex doppler images demonstrate scattered plaque bilaterally. There are diffuse biphasic and triphasic waveforms bilaterally. No focal stenosis is visualized and there is no evidence of arterial occlusion. Peak systolic velocities (cm/sec) Common femoral artery: Right 173; Left 109 Profunda femoris: Right 98; Left 122 SFA (proximal): Right 89; Left 124 SFA (mid): Right 98; Left SFA (distal): Right 102 77; Left 56 Popliteal artery: Right 67; Left 71 GIAN (prox.): Right ; Left 53 Tibioperoneal trunk: Right ; Left 44 LOCKSTITCH HEMMER (prox.): Right 40; Left 51 LOCKSTITCH HEMMER (distal): Right 61; Left 81 GIAN (distal): Right ; Left 98 IMPRESSION: Atheromatous changes with areas of narrowing but no obvious focal occlusion or stenosis. <Electronically signed by Jaron Haskins > 10/21/20 [id number]
== END ==
LOC: M RAD 13:05
PROVIDERS: ATTEND Physician Assistant
DX: I70.234 Atherosclerosis of native arteries of right leg with ulceration of heel and midfoot (principal); I70.244 Atherosclerosis of native arteries of left leg with ulceration of heel and midfoot